=== PATIENT | female | born 1960 | race Caucasian/White ===

== ENCOUNTER → 2018-03-17 21:43 | Outpatient (CLI) | payer BC, SELFPAY ==
[2018-03-21 10:30] LABS: HPV Reflexed? NOT INDICATED
== END ==
PROVIDERS: Visit Provider Nurse Practitioner Adult Health
DX: Z01.419 Encounter for gynecological examination (general) (routine) without abnormal findings (principal)
CPT/HCPCS: 88175; G0145

== ENCOUNTER → 2018-04-29 08:05 | Outpatient (CLI) | payer BC, SELFPAY | PROVIDERS: Family Provider Family Medicine; PCP Family Medicine; Visit Provider Family Medicine | DX: Z12.31 Encounter for screening mammogram for malignant neoplasm of breast (principal) | CPT/HCPCS: 77063; 77067 ==

== ENCOUNTER → 2019-06-18 08:17 | Outpatient (CLI) | payer BC, SELFPAY ==
[2019-06-18 10:17] LABS: ALB/GLOB Ratio 1.1 RATIO (0.9-2.4); AST(SGOT) 90 U/L (15-37); Alanine Aminotransfer ALT/SGPT 36 U/L (13-56); Albumin, Serum 3.4 g/dL (3.2-5.0); Alkaline Phosphatase 75 U/L (45-117); Anion Gap 6 (5-15); BUN 15 mg/dL (7-18); BUN/Creat Ratio 19.3 RATIO (10-20); Chloride 107 mmol/L (98-107); Cholesterol 167 mg/dL (200); Creatinine, Serum 0.78 mg/dL (0.55-1.02); EST Glomerular Filtration Rate 81 mL/min (>60); Est Glom Filt Rate - Afr Amer 98 mL/min (>60); Globulin 3.1 g/dL (2.2-4.2); Glucose 101 mg/dL (74-106); High Density Lipoprotein 59 mg/dL; Magnesium 1.4 mg/dL (1.6-2.6); Potassium 4.6 mmol/L (3.5-5.1); Protein, Total 6.5 g/dL (6.4-8.2); Sodium Level 140 mmol/L (136-145); Triglycerides 86 mg/dL; Very Low Density Lipoprotein 17 mg/dL (5-40)
[2019-06-18 10:19] LABS: Vitamin B12 239 pg/mL (211-911); Vitamin D,25 Hydroxy 28.9 ng/mL (29.95-100.01)
[2019-06-18 10:20] LABS: Hemoglobin A1c 6.4 % (4.2-6.3)
== END ==
PROVIDERS: Family Provider Family Medicine; PCP Family Medicine; Referring Provider Family Medicine; Visit Provider Family Medicine
DX: E83.42 Hypomagnesemia (principal); Z98.84 Bariatric surgery status; E11.9 Type 2 diabetes mellitus without complications
CPT/HCPCS: 36415; 80053; 80061; 82306; 82607; 83036; 83735

== ENCOUNTER → 2019-11-23 14:12 | Outpatient (CLI) | payer BC, SELFPAY ==
--- NOTE | 2019-11-23 14:16 | BI_ITS ---
MAMMOGRAPHY - BILATERAL SCREENING REASON FOR EXAM: Female, 59 years old. Routine annual screening examination. PERTINENT HISTORY: Non-contributory. TECHNIQUE: Digital bilateral breast marie (3D mammographic acquisition) in the CC and MLO projections. 2-D mediolateral oblique (MLO) and craniocaudad (CC) views of both breasts were obtained. CAD: Full Field Digital Mammography with Computer Added Detection was performed. COMPARISON: Comparison is made with prior study dated April 29, 2018. FINDINGS: Breast Composition: There are scattered areas of fibroglandular density. There are no dominant masses or suspicious calcifications. No other significant abnormalities are identified. There has been no significant change since the prior study. BI/SCREEN MAMM (CAD) W/MARIE BILAT IMPRESSION: Stable bilateral screening mammogram. Yearly follow-up mammogram recommended. (A) ASSESSMENT CATEGORY: BIRADS Category 1: Negative. A letter regarding these results will be sent to the patient by the facility within 30 days. Approximately 10% of breast cancers are not detected by mammography. A normal mammogram should not delay biopsy of a clinically suspicious abnormality. [id number] Electronically Signed: Aldo Chacon, at 15:08 EDT , Service support ,
== END ==
PROVIDERS: PCP Family Medicine; Referring Provider Family Medicine; Visit Provider Family Medicine
DX: Z12.31 Encounter for screening mammogram for malignant neoplasm of breast (principal)
CPT/HCPCS: 77063; 77067

== ENCOUNTER → 2020-04-28 08:21 | Outpatient (CLI) | payer BC, SELFPAY ==
[2020-04-28 10:45] LABS: ALB/GLOB Ratio 1.1 RATIO (0.9-2.4); AST(SGOT) 20 U/L (15-37); Alanine Aminotransfer ALT/SGPT 18 U/L (13-56); Albumin, Serum 3.6 g/dL (3.2-5.0); Alkaline Phosphatase 97 U/L (45-117); Anion Gap 6 (5-15); BUN 14 mg/dL (7-18); BUN/Creat Ratio 16.7 RATIO (10-20); Calcium,Total 8.7 mg/dL (8.5-10.1); Chloride 106 mmol/L (98-107); Cholesterol 154 mg/dL (200); Creatinine, Serum 0.84 mg/dL (0.55-1.02); EST Glomerular Filtration Rate 74 mL/min (>60); Est Glom Filt Rate - Afr Amer 89 mL/min (>60); Globulin 3.3 g/dL (2.2-4.2); Glucose 106 mg/dL (74-106); High Density Lipoprotein 59 mg/dL; Potassium 4.2 mmol/L (3.5-5.1); Protein, Total 6.9 g/dL (6.4-8.2); Sodium Level 141 mmol/L (136-145); Triglycerides 58 mg/dL; Very Low Density Lipoprotein 12 mg/dL (5-40)
[2020-04-28 11:08] LABS: Microalbumin:Creatinine Ratio 18.8 mg/g CRE (<30 mg/g CRE)
== END ==
PROVIDERS: PCP Family Medicine; Referring Provider Family Medicine; Visit Provider Family Medicine
DX: E11.9 Type 2 diabetes mellitus without complications (principal)
CPT/HCPCS: 36415; 80053; 80061; 82043; 82570

== ENCOUNTER → 2020-05-05 08:30 | Outpatient (CLI) | payer BC, SELFPAY ==
[2020-05-05 10:40] LABS: Vitamin B12 > 2000 pg/mL (211-911)
[2020-05-11 08:20] LABS: Vitamin B1, Thiamine 161.5 nmol/L (66.5-200.0)
== END ==
PROVIDERS: PCP Family Medicine; Referring Provider Family Medicine; Visit Provider Family Medicine
DX: E55.9 Vitamin D deficiency, unspecified (principal); G62.9 Polyneuropathy, unspecified
CPT/HCPCS: 36415; 82306; 82607; 84425

== ENCOUNTER → 2020-07-12 12:40 | Outpatient (REF) | payer BC, SELFPAY | LOC: LABSPEC 12:40 | PROVIDERS: PCP Family Medicine; Visit Provider Family Medicine | DX: Z03.818 Encounter for observation for suspected exposure to other biological agents ruled out (principal) | CPT/HCPCS: 87635; U0003 ==

== ENCOUNTER → 2020-12-11 14:52 | Outpatient (CLI) | payer BC, SELFPAY ==
[2020-12-11 17:59] LABS: ALB/GLOB Ratio 1.1 RATIO (0.9-2.4); AST(SGOT) 19 U/L (15-37); Alanine Aminotransfer ALT/SGPT 24 U/L (13-56); Albumin, Serum 3.4 g/dL (3.2-5.0); Alkaline Phosphatase 82 U/L (45-117); Anion Gap 10 (5-15); BUN 15 mg/dL (7-18); BUN/Creat Ratio 19.6 RATIO (10-20); Calcium,Total 9.1 mg/dL (8.5-10.1); Chloride 109 mmol/L (98-107); Creatinine, Serum 0.77 mg/dL (0.55-1.02); EST Glomerular Filtration Rate 81 mL/min (>60); Est Glom Filt Rate - Afr Amer 98 mL/min (>60); Globulin 3.1 g/dL (2.2-4.2); Glucose 142 mg/dL (74-106); Potassium 3.4 mmol/L (3.5-5.1); Protein, Total 6.5 g/dL (6.4-8.2); Sodium Level 143 mmol/L (136-145)
[2020-12-11 18:09] LABS: Hemoglobin A1c 6.4 % (3.8-5.6)
[2020-12-11 18:13] LABS: Microalbumin:Creatinine Ratio 79.3 mg/g CRE (<30 mg/g CRE)
== END ==
PROVIDERS: PCP Family Medicine; Referring Provider Family Medicine; Visit Provider Family Medicine
DX: E11.9 Type 2 diabetes mellitus without complications (principal); I10 Essential (primary) hypertension
CPT/HCPCS: 36415; 80053; 82043; 82570; 83036

== ENCOUNTER → 2020-12-28 07:32 | Outpatient (CLI) | payer BC, SELFPAY ==
--- NOTE | 2020-12-28 07:34 | BI_ITS ---
MAMMOGRAPHY - BILATERAL SCREENING REASON FOR EXAM: Female, 60 years old. Routine annual screening examination. PERTINENT HISTORY: Non-contributory. TECHNIQUE: Digital bilateral breast marie (3D mammographic acquisition) in the CC and MLO projections. 2-D mediolateral oblique (MLO) and craniocaudad (CC) views of both breasts were obtained. CAD: Full Field Digital Mammography with Computer Added Detection was performed. COMPARISON: Comparison is made with prior study dated 11/23/2019 and 04/29/2018. FINDINGS: Breast Composition: There are scattered areas of fibroglandular density. There are no dominant masses or suspicious calcifications. No other significant abnormalities are identified. There has been no significant change since the prior study. BI/SCRN MAMM (CAD)W/MARIE BILAT IMPRESSION: Stable bilateral screening mammogram. Yearly follow-up mammogram recommended. (A) ASSESSMENT CATEGORY: BIRADS Category 1: Negative. A letter regarding these results will be sent to the patient by the facility within 30 days. Approximately 10% of breast cancers are not detected by mammography. A normal mammogram should not delay biopsy of a clinically suspicious abnormality. [id number] Electronically Signed: Aldo Chacon MD at 9:15 EDT , Service support ,
== END ==
PROVIDERS: PCP Family Medicine; Referring Provider Family Medicine; Visit Provider Family Medicine
DX: Z12.31 Encounter for screening mammogram for malignant neoplasm of breast (principal)
CPT/HCPCS: 77063; 77067

== ENCOUNTER 2021-05-14 11:13 | Emergency (ER) | payer BC, SELFPAY ==
[2021-05-14 11:15] VITALS: BP 97/74; PULSE 90; RESP 20; TEMP 36.7; O2SAT 95; BMI 31.0
--- NOTE | 2021-05-14 12:27 | RAD_ITS ---
STUDY: X-RAY CHEST REASON FOR EXAM: Female, 60 years old. Cough TECHNIQUE: Single AP portable view of the chest. COMPARISON: None. FINDINGS: EKG electrodes are seen. The lungs are clear and expanded. There is no demonstrated pleural abnormality. Normal size heart. Normal mediastinum and delicia. Normal visualized pulmonary arteries. Normal visualized aortic arch and descending thoracic aorta. There are diffuse degenerative changes of the visualized thoracic spine. There is degenerative osteoarthritis of the bilateral shoulders. There is no demonstrated abnormality of the visualized soft tissue structures of the upper abdomen. RAD/Chest 1 View (Portable) IMPRESSION: No acute abnormality is seen. Electronically Signed: Aldo Chacon MD at 13:33 EDT , Service support ,
--- NOTE | 2021-05-14 12:27 | EKG12_ITS ---
Test Reason : GENERAL ILLNESS Blood Pressure : / mmHG Vent. Rate : 070 BPM Atrial Rate : 070 BPM P-R Int : 166 ms QRS Dur : 080 ms QT Int : 398 ms P-R-T Axes : 066 012 069 degrees QTc Int : 429 ms Normal sinus rhythm Normal ECG Confirmed by CARMELLA BENNETT, DAFNE ([id number]), manager editorial DERICK GREEN ([id number]) on 05/15/2021 2:07:38 PM Referred By: Confirmed By:DAFNE WEIR MD
[2021-05-14] MEDS: 0.9% Normal Saline 1,000 ML 999 ML IV (13:32)
[2021-05-14] MEDS: dexAMETHasone 10 MG/ML Vial IV (13:33)
[2021-05-14 13:44] LABS: Absolute Lymphocyte Count 0.67 X10^3/uL (0.83-4.51); Absolute Neutrophil Count 6.4 X10^3/uL (2.0-7.7); Basophil# 0.02 X10^3/uL; Basophil% 0.3 % (0-1); Eosinophil# 0.03 X10^3/uL; Eosinophils% 0.4 % (0-5); Hematocrit 41.4 % (37-47); Hemoglobin 13.4 g/dL (12.0-15.0); Lymphocyte # 0.67 X10^3/ul (0.83-4.51); Lymphocyte % 8.8 % (19-41); Mean Corp Hgb Conc 32.4 g/dL (32-36); Mean Corpuscular Hgb 28.8 pg (27.0-32.0); Mean Corpuscular Volume 88.8 fL (81-99); Mean Platelet Vol. 9.5 fl (6.2-12.0); Monocyte# 0.39 X10^3/uL; Monocyte% 5.1 % (0-10); NRBC Flagged by Analyzer 0 % (0-5); Neutrophil # 6.44 X10^3/uL (2.7-7.7); Neutrophil % 84.7 % (47-70); Platelet Count 353 K/mm3 (150-450); RBC Distribution Width CV 11.9 % (11.6-14.6); RBC Distribution Width SD 38.5 fl (35.1-43.9); Red Blood Count 4.66 M/mm3 (4.2-5.4); White Blood Count 7.6 K/mm3 (4.4-11.0)
[2021-05-14 14:11] LABS: Anion Gap 7 (5-15); BUN 27 mg/dL (7-18); BUN/Creat Ratio 30.5 RATIO (10-20); Calcium,Total 9.2 mg/dL (8.5-10.1); Chloride 105 mmol/L (98-107); Creatinine, Serum 0.88 mg/dL (0.55-1.02); EST Glomerular Filtration Rate 69 mL/min (>60); Est Glom Filt Rate - Afr Amer 83 mL/min (>60); Estimated Creatinine Clearance 65.28 ml/min; Glucose 234 mg/dL (74-106); Magnesium 1.8 mg/dL (1.6-2.6); Potassium 3.7 mmol/L (3.5-5.1); Sodium Level 137 mmol/L (136-145); Troponin-I HS 7 pg/mL (3.0-54.0)
--- NOTE | 2021-05-14 14:57 | EX.ED.DYSGE1 ---
HPI History of Present Illness Chief Complaint: General Illness Narrative Narrative: Patient is a 60-year-old female who contracted Covid at work approximately 10 to 14 days ago. Family states they felt she was slightly confused yesterday. They also state that the patient's also has Covid but had to be admitted to the hospital secondary to Covid pneumonia. With the patient's symptoms and known Covid diagnosis I did have concern for being admission and therefore brought her in for evaluation PFSH PFS Home Medications dexamethasone [Decadron] 6 mg PO DAILY #10 tab 05/14/21 [Rx Last Taken Unknown] Allergy/AdvReac Type Severity Reaction Status Date / Time ramipril [From Altace] Allergy Other Verified 05/14/21 11:25 Social History Smoking Status: Former smoker ROS ROS ED Constitutional Constitutional ED: Denies chills or fever(s) ENT ENT ED: Reports rhinorrhea; Denies sore throat Cardiovascular Cardiovascular: Denies chest pain Respiratory/Chest Respiratory/Chest: Reports cough; Denies dyspnea Gastrointestinal Gastrointestinal: Denies abdominal pain, diarrhea, nausea or vomiting Genitourinary Genitourinary ED: Denies dysuria Musculoskeletal Musculoskeletal: Denies myalgias Integumentary Denies rash Neurologic Neurologic: Denies headache(s) Hematologic/Lymphatic Hematologic/Lymphatic: Denies easy bleeding or easy bruising EXAM Physical Exam Const Vital Signs: 05/14/21 11:15 05/14/21 11:26 Temperature 98.1 F Temperature Source Temporal Pulse Rate 90 Respiratory Rate 20 H Respiratory Pattern Normal Blood Pressure 97/74 Blood Pressure Mean 81 Pulse Ox 95 Oxygen Delivery Method Room Air Positive well nourished and well developed General Appearance ED: well developed HEENT Reports moist mucous membranes HEENT Narrative: Cobblestoning noted in the posterior pharynx without airway edema or compromise Eyes PERRL and EOMs intact bilaterally Neck supple Chest Wall inspection of chest normal Resp Resp Narrative: Breath sounds are slight diminished throughout with faint expiratory wheeze but no nasal flaring retractions tachypnea or accessory muscle use Cardio regular rate and regular rhythm Rate: other Other Details: Radial pulses are plus 2 out of 4 bilaterally are equal and symmetric GI normal to inspection, nondistended, normoactive bowel sounds, non-tender and non-distended GI Narrative: No voluntary guarding or rigidity no pulsatile mass Auscultation: normoactive bowel sounds Palpation: soft Extremity normal to inspection Extremity Narrative: No asymmetric edema no pitting edema negative Homans' sign bilaterally Neuro oriented x3 and CN's II-XII intact bilaterally Sensorium / Orientation: alert Motor Exam: strength 5/5 throughout Psych mental status grossly normal Skin no rashes or lesions noted MDM MDM MDM Narrative Medical decision making narrative: Patient presented to the ER in no acute distress. Family reported mild confusion but she is awake alert and oriented person place and time with a nonfocal neurologic exam. With her known Covid diagnosis I do feel that she has mild delirium secondary to this. As her has Covid pneumonia did elect to perform a basic work-up. Chest x-ray revealed no obvious infiltrate and lab work revealed no clinically significant finding. On reevaluation she is resting comfortably and remains awake alert and oriented with a normal neurologic exam and therefore I feel safe for discharge Lab Data Labs: Laboratory Results - last 24 hr 05/14/21 05/14/21 13:30 13:30 WBC 7.6 RBC 4.66 Hgb 13.4 Hct 41.4 MCV 88.8 MCH 28.8 MCHC 32.4 RDW Std Deviation 38.5 RDW Coeff of Cristina 11.9 Plt Count 353 MPV 9.5 Immature Gran % (Auto) 0.700 Neut % (Auto) 84.7 H Lymph % (Auto) 8.[address] [place] % (Auto) 5.1 Eos % (Auto) 0.4 Baso % (Auto) 0.3 Absolute Neuts (auto) 6.4 Absolute Lymphs (auto) 0.67 L Nucleated RBC % 0 Sodium 137 Potassium 3.7 Chloride 105 Carbon Dioxide 25.0 Anion Gap 7 BUN 27 H Creatinine 0.88 Estim Creat Clear Calc 65.28 Est GFR (MDRD) Af Amer 83 Est GFR (MDRD) Non-Af 69 BUN/Creatinine Ratio 30.5 H Glucose 234 H Calcium 9.2 Magnesium 1.8 Troponin I High Sens 7 Radiography Chest X-Ray - ED: 1 View, Read by Radiologist and Normal Diagnostic Testing: Radiology Impression Chest X-Ray 05/14/21 12:27 IMPRESSION: No acute abnormality is seen. Electronically Signed: Aldo Chacon MD at 13:33 EDT , Service support , Discharge Plan Triage Chief Complaint: General Illness ED Provider: Malachi Dozier Dx/Rx/DC Orders Clinical Impression: COVID-19 Instructions: Coronavirus Disease 2019 (COVID-19): Caring for Yourself or Others Prescriptions: New dexamethasone [Decadron] 6 mg tablet 6 mg PO DAILY Qty: 10 RF: 0 Primary Care Provider: Tunde Servin Referrals: Tunde Servin MD [Primary Care Provider] - Disposition Disposition: Home, Self Care
[2021-05-14 15:09] VITALS: BP 105/57; PULSE 76; RESP 23; O2SAT 96
== END 2021-05-14 15:12 | disposition home or self-care (01) ==
PROVIDERS: Emergency Provider Emergency Medicine; PCP Family Medicine
DX: U07.1 COVID-19 (principal); Z87.891 Personal history of nicotine dependence
CPT/HCPCS: 71045; 80048; 83735; 84484; 85025; 93005; 96361; 96374; 99282; J7030; A4216

== ENCOUNTER → 2021-05-15 16:19 | Outpatient (CLI) | payer BC, SELFPAY ==
[2021-05-15 18:05] LABS: Absolute Lymphocyte Count 0.54 X10^3/uL (0.83-4.51); Absolute Neutrophil Count 8.8 X10^3/uL (2.0-7.7); Basophil# 0.02 X10^3/uL; Basophil% 0.2 % (0-1); Hematocrit 38.9 % (37-47); Hemoglobin 12.6 g/dL (12.0-15.0); Lymphocyte # 0.54 X10^3/ul (0.83-4.51); Lymphocyte % 5.4 % (19-41); Mean Corp Hgb Conc 32.4 g/dL (32-36); Mean Corpuscular Hgb 28.6 pg (27.0-32.0); Mean Corpuscular Volume 88.4 fL (81-99); Mean Platelet Vol. 9.7 fl (6.2-12.0); Monocyte# 0.53 X10^3/uL; Monocyte% 5.3 % (0-10); NRBC Flagged by Analyzer 0 % (0-5); Neutrophil # 8.76 X10^3/uL (2.7-7.7); Neutrophil % 87.9 % (47-70); POSITIVE DIFFERENTIAL YES; Platelet Count 351 K/mm3 (150-450); RBC Distribution Width CV 11.6 % (11.6-14.6); RBC Distribution Width SD 37.2 fl (35.1-43.9)
[2021-05-15 18:13] LABS: Differential Indicated SCAN CRITERIA MET
[2021-05-15 18:42] LABS: Differential Comment SCANNED
[2021-05-15 18:50] LABS: Anion Gap 10 (5-15); BUN 21 mg/dL (7-18); BUN/Creat Ratio 22.8 RATIO (10-20); Calcium,Total 9.6 mg/dL (8.5-10.1); Chloride 105 mmol/L (98-107); Creatinine, Serum 0.92 mg/dL (0.55-1.02); EST Glomerular Filtration Rate 66 mL/min (>60); Est Glom Filt Rate - Afr Amer 80 mL/min (>60); Glucose 246 mg/dL (74-106); Potassium 4.2 mmol/L (3.5-5.1); Sodium Level 138 mmol/L (136-145)
== END ==
PROVIDERS: PCP Family Medicine; Referring Provider Family Medicine; Visit Provider Registered Nurse
DX: U07.1 COVID-19 (principal)
CPT/HCPCS: 36415; 80048; 85025

== ENCOUNTER 2021-11-16 08:13 | Outpatient (CLI) | payer BC, SELFPAY ==
[2021-11-16 09:25] LABS: Absolute Lymphocyte Count 0.86 X10^3/uL (0.83-4.51); Absolute Neutrophil Count 3.8 X10^3/uL (2.0-7.7); Basophil# 0.05 X10^3/uL; Basophil% 0.9 % (0-1); Eosinophil# 0.22 X10^3/uL; Eosinophils% 4.1 % (0-5); Hematocrit 38.9 % (37-47); Hemoglobin 12.5 g/dL (12.0-15.0); Lymphocyte # 0.86 X10^3/ul (0.83-4.51); Lymphocyte % 16.1 % (19-41); Mean Corp Hgb Conc 32.1 g/dL (32-36); Mean Corpuscular Hgb 29.3 pg (27.0-32.0); Mean Corpuscular Volume 91.3 fL (81-99); Mean Platelet Vol. 9.5 fl (6.2-12.0); Monocyte# 0.34 X10^3/uL; Monocyte% 6.4 % (0-10); NRBC Flagged by Analyzer 0 % (0-5); Neutrophil # 3.84 X10^3/uL (2.7-7.7); Neutrophil % 72.1 % (47-70); Platelet Count 207 K/mm3 (150-450); RBC Distribution Width CV 12.5 % (11.6-14.6); RBC Distribution Width SD 41.8 fl (35.1-43.9); Red Blood Count 4.26 M/mm3 (4.2-5.4); White Blood Count 5.3 K/mm3 (4.4-11.0)
[2021-11-16 09:44] LABS: Microalbumin,Random Urine 34.2 mg/L (NO RANGE EST.)
[2021-11-16 10:01] LABS: Hemoglobin A1c 6.6 % (3.8-5.6)
[2021-11-16 10:13] LABS: ALB/GLOB Ratio 1.2 RATIO (0.9-2.4); AST(SGOT) 15 U/L (15-37); Alanine Aminotransfer ALT/SGPT 23 U/L (13-56); Albumin, Serum 3.5 g/dL (3.2-5.0); Alkaline Phosphatase 60 U/L (45-117); Anion Gap 5 (5-15); BUN 10 mg/dL (7-18); BUN/Creat Ratio 15.4 RATIO (10-20); Calcium,Total 8.6 mg/dL (8.5-10.1); Chloride 106 mmol/L (98-107); Cholesterol 156 mg/dL (200); Creatinine, Serum 0.65 mg/dL (0.55-1.02); EST Glomerular Filtration Rate 98 mL/min (>60); Est Glom Filt Rate - Afr Amer 119 mL/min (>60); Globulin 2.9 g/dL (2.2-4.2); Glucose 130 mg/dL (74-106); High Density Lipoprotein 62 mg/dL; Potassium 4.2 mmol/L (3.5-5.1); Protein, Total 6.4 g/dL (6.4-8.2); Sodium Level 138 mmol/L (136-145); Triglycerides 133 mg/dL; Very Low Density Lipoprotein 27 mg/dL (5-40)
== END 2021-11-16 23:59 | disposition home or self-care (01) ==
LOC: LAB 08:14
PROVIDERS: Family Medicine; Visit Provider Nurse Practitioner Family
DX: E11.9 Type 2 diabetes mellitus without complications (principal); I10 Essential (primary) hypertension
CPT/HCPCS: 36415; 80053; 80061; 82043; 83036; 85025

== ENCOUNTER 2021-11-26 15:00 | Outpatient (RCR) | payer BC, SELFPAY ==
--- NOTE | 2021-10-08 09:47 | HP.PTEVAL ---
Patient's Visit Information JONO BELLO is a 61 year old F referred to Physical Therapy by ROGE Varela with a diagnosis of Neck Strain. Date of Evaluation: 10/08/21 Physical Therapist: JUANITA Laguerre - Visit Plan Frequency: 2x /Week Duration: 6 Weeks Plan: 2X/ week for 6 weeks for Postural and scapular exercises, RC strengthening, Stretching of the R hip flexors, Piriformis and IT Band, strengthening of the R hip, gait training, core stability with HEP and man therapy as needed. HEP: sitting with upright posture and R chair seated piriformis stretching. - Subjective Pt reports that she started to have some R arm achy over the lateral side of her R shoulder and it is hot and not feeling right. The more she used it the worst she became. She has no strength or ROM to move her arm or even wipe her bottom. She went to a chiropractor and he was releasing tension in her shoulder blades. Every time she went to him he wanted to crack her. Through her Chiro treatment she started to have pain in the Left side of her arms. She also has a pinched something in her R hip and it is very painful at times. She was given muscle relaxors and those have helped a lot. The last time she went to see the chiropractor she will hear bones popping on the R side side. She put her R arm up in the air and he jerked up on her. She was in such pain from the manipulation on both sides that she was crying. She is on Advil and muscle relaxors. She did sleep a lot this weekend. Current symptoms: difficulty moving her arms in certain directions and feels in muscles. 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 She has no N&T in the last couple of days but last week there was in upper and lower arms. She reports that she has neck pain and carries a lot of tension in her shoulders. She sees a massage therapist (seen this past Friday)...She does not feel too bad. Doucette some relief from massage therapy but it was temporary. It did not go away and had pain in her hip so bad she could not walk. She has no ANN. She reports weakness when she looses her strength when she does something. Pt reports that she was moving her dad a lot in bed and thinks that is when her shoulder pain started. R hip pain has been going on for quite some time. She thinks that she has had a limp in her hip for some time but since her R shoulder has flared up she feels that her hip is so painful that she can not move. Years since an x-ray. She has no N&T down the leg. Sitting to stand is bad. Walking is bad at times. She can walk somedays but other days not so much. Her R leg does not give out on her. It just stops her in her tracks. - Pain C-spine pain Pain Intensity (Out of 10): 3 Pain Intensity Range: 10 R shoulder pain Pain Intensity (Out of 10): 3 Pain Intensity Range: 10 Comment: with IBProf L shoulder pain Pain Intensity (Out of 10): 3 Pain Intensity Range: 10 Comment: with IBProf R hip argueta Pain Intensity (Out of 10): 3 Pain Intensity Range: 10 - Objective R hand cyber crime investigator strength 18# and L hand cyber crime investigator strength 20#. C-spine AROM: flexion 100%, Ext 75%, SB B 100%, Rot B 100%. Shoulder AROM: L shoulder flexion 150 degrees, R shoulder flexion 116 degrees, L shoulder ABD 130 degrees and R shoulder ABD 91 degrees, L IR to L1 and R IR to not even to PSIS, L ER 35 degrees, and R ER 30 degrees. Shoulder MMT: 3-/5 B shld flexion (painful), 3-/5 IR and ER B, Shld abd 3+/5. Posture: sits with rounded shoulders. palpation: tender under the acromin on the R. Gait: walks with decrease stance time on the R LE. Increase veering at times. Short strides. TIGHT B hip flexors/Quads. Good HS length. Pt is able to walk on heels and toes. LE MMT: B hip flex 4-/5, R hip abd 3+/5 and L 4-/5, Prone hip ext B 3-/5. Tight R pififormis compared to the L and increase pain with stretching it. Tight IT band on the R compared to the L and pain with stretching it in supine. Bridge: able to do 1/2 normal ROM bridge - Balance/Special Test Scores Quick DASH Score: 68.1800 - Goals Goal 1:: I HEP Goal Time Frame: 4-6 Weeks Goal 2:: Decrease shoulder pain to less that 2/10 with movement and even doing bathroom personal hygeine Goal Time Frame: 4-6 Weeks Goal 3:: Decrease L hip pain to 2/10 with sit to stand transfers and sitting for longer than 30 min without having to shift off the R hip Goal Time Frame: 4-6 Weeks Goal 4:: Increase L hip strength by 1/2 muscle grade (at time of the eval: LE MMT: B hip flex 4-/5, R hip abd 3+/5 and L 4-/5, Prone hip ext B 3-/5) Goal Time Frame: 4-6 Weeks Goal 5:: Increase R piriformis and R IT band flexibility to be able to complete those stretches without pain Goal Time Frame: 4-6 Weeks - Rehabilitation Potential Rehabilitation Potential: Good - Anticipated Interventions Patient/Client Instruction: Educate patient on: Condition, Plan of Care For the Purpose of:: To decrease pain, To increase ROM, To improve nutrient delivery to tissue, To improve muscle performance and motor function, To improve ability to perform ADL's, To increase tolerance to activity/condition/position, To improve performance and independence with ADL's, To decrease level of supervision to perform tasks, To improve ability of physical actions for home/community/work/leisure, To improve gait and locomotor functions, To improve health of tissue, To decrease soft tissue restriction, To increase flexibility/ROM Therapeutic Exercise to Include: Strength training, Balance training, Postural training, Flexibilty training, Gait and locomotor training, Neuromotor development, Passive ROM, Active ROM, Dynamic Lumbar Stabilization, Scapular Strength/Stabilization For the Purpose of:: To decrease pain, To increase ROM, To improve nutrient delivery to tissue, To improve muscle performance and motor function, To improve ability to perform ADL's, To increase tolerance to activity/condition/position, To improve performance and independence with ADL's, To decrease level of supervision to perform tasks, To improve ability of physical actions for home/community/work/leisure, To improve gait and locomotor functions, To improve health of tissue, To decrease soft tissue restriction, To increase flexibility/ROM, To improve balance Manual Therapy Techniques to Include: Mobilization, Passive ROM, Soft tissue mobilization For the Purpose of:: To decrease pain, To increase ROM, To improve nutrient delivery to tissue, To improve muscle performance and motor function, To improve ability to perform ADL's, To increase tolerance to activity/condition/position, To improve performance and independence with ADL's, To decrease level of supervision to perform tasks, To improve gait and locomotor functions, To improve health of tissue, To decrease soft tissue restriction, To increase flexibility/ROM Thank you for the opportunity to evaluate your patient. For Medicare and Medicare HMO plans, please review the plan of care and approve it. It will need to be FAXED BACK to us at [phone] for Medicare purposes. For Medicare only, by signing this I certify the plan of care. Please let me know if there are questions or concerns regarding this plan of care. Physician Signature: Date:
--- NOTE | 2021-11-26 15:53 | HP.PTDCSUM_ITS ---
It has been my pleasure to treat JONO BELLO referred by WALDEMAR Varela, with the diagnosis of Neck Strain for a total of 10 visit(s). Discharge Date: 11/26/21 Please see the following information for a summary of their discharge status. Subjective: Pt reports that she has been feeling relief with the manual therapy and then stretching. She is going to go to [facility] during her lunch break to resume PT. Able to do hip exercises at home without any pain. The muscles in her neck, shoulders, and shoulder blades and she just holds her tension there and everywhere is so tense. Pt has the oppurtunity to do a $15 membership at the [facility]. SHe also has some AT sessions lined up also. The popping in the shoulder is better. she feels that she needs more MT before strengthening. C-spine pain Pain Intensity (Out of 10): 2 R shoulder pain Pain Intensity (Out of 10): 4 L shoulder pain Pain Intensity (Out of 10): 4 R hip argueta Pain Intensity (Out of 10): 0 % Improvement: 50 Objective/Function: LE MMT: B hip flex 4/5, R hip abd 4-/5 and L 4-/5, Prone hip ext B 3-/5) Goal 1:: I HEP Goal Progress: Goal Met Goal 2:: Decrease shoulder pain to less that 2/10 with movement and even doing bathroom personal hygeine Goal Progress: Progressing Goal 3:: Decrease L hip pain to 2/10 with sit to stand transfers and sitting for longer than 30 min without having to shift off the R hip Goal Progress: Goal Met Goal 4:: Increase L hip strength by 1/2 muscle grade (at time of the eval: LE MMT: B hip flex 4-/5, R hip abd 3+/5 and L 4-/5, Prone hip ext B 3-/5) Goal Progress: Goal Met Goal 5:: Increase R piriformis and R IT band flexibility to be able to complete those stretches without pain Goal Progress: Goal Met Plan: DC PT to HEP Discharge Comments: dc pt If there are questions or concerns regarding this patient's physical therapy, please feel free to call me at [phone]. Thank you for the referral of this patient. Sincerely, Mei Stoner, MPT Balance/Gait/Functional tests - Balance/Special Test Scores Quick DASH Score: [phone]
== END 2021-11-26 19:00 | disposition home or self-care (01) ==
LOC: PT 15:00
PROVIDERS: PCP Family Medicine; Referring Provider Nurse Practitioner Family; Visit Provider Nurse Practitioner Family
DX: M25.559 Pain in unspecified hip (principal); S16.1XXD Strain of muscle, fascia and tendon at neck level, subsequent encounter
CPT/HCPCS: 97110; 97140; 97162; 97530

== ENCOUNTER → 2022-04-23 | Outpatient (CLI) | payer BC, SELFPAY | END | disposition home or self-care (01) | LOC: LABSPEC 08:54 | PROVIDERS: Visit Provider Family Medicine | DX: R21 Rash and other nonspecific skin eruption (principal) | CPT/HCPCS: 87070; 87077; 87186; 87205 ==

== ENCOUNTER → 2022-06-20 | Outpatient (CLI) | payer BC, SELFPAY ==
--- NOTE | 2022-06-20 13:55 | ECHOD_ITS ---
Reason For Study: Murmur Procedure This was a 2D Doppler, Color Flow transthoracic echocardiogram. Exam performed in department. Left Ventricle Normal LV size. The estimated ejection fraction is 60 %. No evidence for diastolic dysfunction. No regional wall motion abnormalities noted. Right Ventricle Normal RV size. Normal systolic function. Atria Normal left atrium. Normal right atrium. Bubble study appears to be positive for R to L shunt. Mitral Valve There is no mitral valve stenosis. No mitral valve insufficiency. Tricuspid Valve There is no tricuspid stenosis. Mild tricuspid valve insufficiency. Pulmonary artery systolic pressure is 25 mmHg. Aortic Valve Trisinus/trileaflet aortic valve. Mild diffuse aortic valve thickening. Mild aortic stenosis. No aortic valve insufficiency. Pulmonic Valve There is no pulmonic valvular stenosis. No pulmonic valve insufficiency. Great Vessels Normal aortic root. Pericardium/Pleural No pericardial effusion. Medication 20 gauge I.V. with prn adaptor inserted into right arm. Performed a rapid injection of agitated mix of 9 cc saline and 1cc air to assess for atrial septal defect. MMode/2D Measurements & Calculations LVIDd: 4.4 cm IVSd: 1.2 cm LVOT diam: 2.2 cm LVIDs: 3.4 cm LVPWd: 1.0 cm RVDd: 3.4 cm FS: 23.9 % LVOT area: 3.8 cm2 LA dimension: 3.8 cm LAV(MOD-bp): 54.1 ml LA A4 area: 17.8 cm2 LAV(MOD-bp) Indexed: 26.1 ml/m2 LAV(MOD-sp2): 53.5 ml LAV(MOD-sp4): 51.9 ml RA A4 area: 12.7 cm2 Time Measurements MV dec time: 0.18 sec Doppler Measurements & Calculations MV E max leander: 66.8 cm/sec Lat Peak E' Leander: 9.0 cm/sec Med Peak E' Leander: 7.6 cm/sec MV A max leander: 113.1 cm/sec E/E' lat: 7.5 E/E' med: 8.8 MV E/A: 0.59 MV V2 max: 119.4 cm/sec MV P1/2t max leander: 75.0 cm/sec Ao V2 max: 234.4 cm/sec MV max P.7 mmHg MV P1/2t: 70.3 msec Ao max P.0 mmHg MV V2 mean: 62.2 cm/sec MV dec slope: 312.5 cm/sec2 Ao V2 mean: 158.7 cm/sec MV mean P.8 mmHg Ao mean P.6 mmHg MV V2 VTI: 21.8 cm MVA(P1/2t): 3.1 cm2 Ao V2 VTI: 43.2 cm MVA(VTI): 2.9 cm2 ELANA(I,D): 1.5 cm2 ELANA(V,D): 1.3 cm2 LV V1 max: 81.8 cm/sec SV(LVOT): 63.8 ml PA V2 max: 83.3 cm/sec LV V1 max P.7 mmHg LV V1 mean P.2 mmHg LV V1 mean: 48.8 cm/sec LV V1 VTI: 16.8 cm TR max leander: 244.6 cm/sec TR max P.9 mmHg ECHO/Echo Complete Interpretation Summary The estimated ejection fraction is 60 %. No evidence for diastolic dysfunction. Mild aortic stenosis. Ordering Physician: Leyda Mukherjee Referring Physician: Leyda Mukherjee Performed By: Vikash Caldera RCS
== END | disposition home or self-care (01) ==
LOC: CVS 13:54
PROVIDERS: PCP Family Medicine; Referring Provider Family Medicine; Visit Provider Family Medicine
DX: R01.1 Cardiac murmur, unspecified (principal)
CPT/HCPCS: 93306; A4216

== ENCOUNTER → 2022-08-07 | Outpatient (CLI) | payer BC, SELFPAY ==
--- NOTE | 2022-08-07 16:24 | MRI_ITS ---
EXAM: MR LEFT UPPER EXTREMITY WITHOUT INTRAVENOUS CONTRAST, HUMERUS CLINICAL INDICATION: bicep tear TECHNIQUE: Multiplanar and multisequence MR images of the right humerus without intravenous contrast. This report was created using [employer] report [employer] technology. COMPARISON: None. FINDINGS: Motion artifact limits assessment. BONES/JOINTS: Large amount of glenohumeral joint fluid. This extends into the subacromial/subdeltoid bursa through a full-thickness tear of the supraspinatus and infraspinatus tendon. There is possible tearing involving some of the fibers of subscapularis tendon. No bone marrow signal alterations involving the humerus. No fracture. MUSCLES: There is evidence of a low to moderate grade strain injury involving the coracobrachialis muscle and the biceps brachii muscle anteriorly. OTHER SOFT TISSUES: Long head of the biceps tendon is not seen in the bicipital groove and may be torn/displaced. MRI/Upper Ext/No Jt/ wo IMPRESSION: 1. Full-thickness tear of the infraspinatus and supraspinatus tendons. Possible partial-thickness tearing of some of the fibers of the subscapularis tendon. Consider MRI dedicated to the right shoulder for further more accurate investigation. 2. Large amount of glenohumeral joint fluid extending into the subacromial/subdeltoid bursa. 3. Low to moderate grade strain injury involving the coracobrachialis muscle and the biceps brachii muscle anteriorly. Electronically Signed: Malachi Wild MD at 22:34 EST ,
== END | disposition home or self-care (01) ==
PROVIDERS: PCP Family Medicine; Referring Provider Nurse Practitioner Family; Visit Provider Nurse Practitioner Family
DX: M75.121 Complete rotator cuff tear or rupture of right shoulder, not specified as traumatic (principal); S46.211A Strain of muscle, fascia and tendon of other parts of biceps, right arm, initial encounter; M25.411 Effusion, right shoulder
CPT/HCPCS: 73218

== ENCOUNTER → 2022-12-31 | Outpatient (CLI) | payer BC, SELFPAY ==
--- NOTE | 2022-12-31 14:23 | BI_ITS ---
MAMMOGRAPHY - BILATERAL SCREENING REASON FOR EXAM: Female, 62 years old. Routine annual screening examination. PERTINENT HISTORY: Non-contributory. TECHNIQUE: Digital bilateral breast marie (3D mammographic acquisition) in the CC and MLO projections. 2-D mediolateral oblique (MLO) and craniocaudad (CC) views of both breasts were obtained. CAD: Full Field Digital Mammography with Computer Added Detection was performed. COMPARISON: Comparison is made with prior study of December 28, 2020 and November 23, 2019 FINDINGS: Breast Composition: There are scattered areas of fibroglandular density. There are no dominant masses or suspicious calcifications. No other significant abnormalities are identified. There has been no significant change since the prior study. BI/SCRN MAMM (CAD)W/MARIE BILAT IMPRESSION: Stable bilateral screening mammogram. Yearly follow-up mammogram recommended. (A) ASSESSMENT CATEGORY: BIRADS Category 1: Negative. A letter regarding these results will be sent to the patient by the facility within 30 days. Approximately 10% of breast cancers are not detected by mammography. A normal mammogram should not delay biopsy of a clinically suspicious abnormality. [id number] Electronically Signed: Aldo Chacon MD at 8:58 EDT ,
== END | disposition home or self-care (01) ==
PROVIDERS: PCP Family Medicine; Referring Provider Nurse Practitioner Family; Visit Provider Nurse Practitioner Family
DX: Z12.31 Encounter for screening mammogram for malignant neoplasm of breast (principal)
CPT/HCPCS: 77063; 77067

== ENCOUNTER → 2023-03-10 | Outpatient (CLI) | payer OTHER, SELFPAY ==
[2023-03-10 12:30] LABS: AST(SGOT) 19 U/L (15-37); Alanine Aminotransfer ALT/SGPT 27 U/L (13-56); Albumin, Serum 3.5 g/dL (3.2-5.0); Alkaline Phosphatase 71 U/L (45-117); Anion Gap 7 (5-15); BUN 11 mg/dL (7-18); BUN/Creat Ratio 13.6 RATIO (10-20); Calcium,Total 9.2 mg/dL (8.5-10.1); Chloride 106 mmol/L (98-107); Creatinine, Serum 0.81 mg/dL (0.55-1.02); EST Glomerular Filtration Rate 76 mL/min (>60); Est Glom Filt Rate - Afr Amer 92 mL/min (>60); Globulin 3.4 g/dL (2.2-4.2); Glucose 193 mg/dL (74-106); Protein, Total 6.9 g/dL (6.4-8.2); Sodium Level 140 mmol/L (136-145)
== END | disposition home or self-care (01) ==
PROVIDERS: PCP Family Medicine; Referring Provider Family Medicine; Visit Provider Family Medicine
DX: E11.9 Type 2 diabetes mellitus without complications (principal)
CPT/HCPCS: 36415; 80053; 82043

== ENCOUNTER → 2023-10-13 | Outpatient (CLI) | payer OTHER, SELFPAY ==
[2023-10-13 11:02] LABS: Microalbumin,Random Urine 25.6 mg/L (NO RANGE EST.); Microalbumin:Creatinine Ratio 36.3 mg/g CRE (<30 mg/g CRE)
[2023-10-13 11:06] LABS: ALB/GLOB Ratio 1.1 RATIO (0.9-2.4); AST(SGOT) 21 U/L (15-37); Alanine Aminotransfer ALT/SGPT 25 U/L (13-56); Albumin, Serum 3.5 g/dL (3.2-5.0); Alkaline Phosphatase 74 U/L (45-117); Anion Gap 6 (5-15); BUN 12 mg/dL (7-18); BUN/Creat Ratio 14.7 RATIO (10-20); Chloride 109 mmol/L (98-107); Cholesterol 166 mg/dL (200); Creatinine, Serum 0.82 mg/dL (0.55-1.02); EST Glomerular Filtration Rate 75 mL/min (>60); Est Glom Filt Rate - Afr Amer 91 mL/min (>60); Ferritin 12 ng/mL (8-252); Globulin 3.3 g/dL (2.2-4.2); Glucose 131 mg/dL (74-106); High Density Lipoprotein 62 mg/dL; Potassium 4.4 mmol/L (3.5-5.1); Protein, Total 6.8 g/dL (6.4-8.2); Sodium Level 141 mmol/L (136-145); Triglycerides 100 mg/dL; Very Low Density Lipoprotein 20 mg/dL (5-40)
[2023-10-13 13:01] LABS: Vitamin B12 159 pg/mL (211-911); Vitamin D,25 Hydroxy 30.8 ng/mL
== END | disposition home or self-care (01) ==
PROVIDERS: PCP Family Medicine; Referring Provider Family Medicine; Visit Provider Family Medicine
DX: E11.9 Type 2 diabetes mellitus without complications (principal); E53.8 Deficiency of other specified B group vitamins; E55.9 Vitamin D deficiency, unspecified; E78.5 Hyperlipidemia, unspecified; I10 Essential (primary) hypertension
CPT/HCPCS: 36415; 80053; 80061; 82043; 82306; 82570; 82607; 82728

== ENCOUNTER → 2024-06-10 | Outpatient (CLI) | payer BC, SELFPAY ==
[2024-06-10 18:11] LABS: Absolute Neutrophil Count 4.3 X10^3/uL (2.0-7.7); Basophil# 0.04 X10^3/uL; Basophil% 0.7 % (0-1); Eosinophil# 0.08 X10^3/uL; Eosinophils% 1.3 % (0-5); Hematocrit 36.3 % (37-47); Hemoglobin 12.1 g/dL (12.0-15.0); Lymphocyte % 22.8 % (19-41); Mean Corp Hgb Conc 33.3 g/dL (32-36); Mean Corpuscular Hgb 30.6 pg (27.0-32.0); Mean Corpuscular Volume 91.9 fL (81-99); Mean Platelet Vol. 10.5 fl (6.2-12.0); Monocyte# 0.31 X10^3/uL; Monocyte% 5.1 % (0-10); NRBC Flagged by Analyzer 0 % (0-5); Neutrophil # 4.28 X10^3/uL (2.7-7.7); Neutrophil % 69.8 % (47-70); Platelet Count 190 K/mm3 (150-450); RBC Distribution Width CV 11.7 % (11.6-14.6); RBC Distribution Width SD 39.6 fl (35.1-43.9); Red Blood Count 3.95 M/mm3 (4.2-5.4); White Blood Count 6.1 K/mm3 (4.4-11.0)
[2024-06-10 18:28] LABS: ALB/GLOB Ratio 1.2 RATIO (0.9-2.4); AST(SGOT) 14 U/L (15-37); Alanine Aminotransfer ALT/SGPT 23 U/L (13-56); Albumin, Serum 3.7 g/dL (3.2-5.0); Alkaline Phosphatase 61 U/L (45-117); Anion Gap 7 (5-15); BUN 15 mg/dL (7-18); BUN/Creat Ratio 14.7 RATIO (10-20); Calcium,Total 9.6 mg/dL (8.5-10.1); Chloride 107 mmol/L (98-107); Creatinine, Serum 1.02 mg/dL (0.55-1.02); EST Glomerular Filtration Rate 58 mL/min (>60); Est Glom Filt Rate - Afr Amer 70 mL/min (>60); Globulin 3.2 g/dL (2.2-4.2); Glucose 188 mg/dL (74-106); Protein, Total 6.9 g/dL (6.4-8.2); Sodium Level 138 mmol/L (136-145)
[2024-06-11 11:11] LABS: Vitamin B12 427 pg/mL (211-911)
== END | disposition home or self-care (01) ==
PROVIDERS: PCP Family Medicine; Referring Provider Family Medicine; Visit Provider Family Medicine
DX: E11.9 Type 2 diabetes mellitus without complications (principal); E53.8 Deficiency of other specified B group vitamins
CPT/HCPCS: 36415; 80053; 82607; 85025

== ENCOUNTER 2024-12-14 12:21 | Outpatient (CLI) | payer MEDICARE, SELFPAY ==
--- NOTE | 2024-12-14 12:54 | BI_ITS ---
EXAM: SCRN MAMM (CAD)W/MARIE BILAT DATE: 12/14/2024 CLINICAL HISTORY: F, Age 64 y/o , SCREENING No family history. BREAST CANCER RISK ASSESSMENT: Not assessed. TECHNIQUE: Bilateral screening digital breast tomosynthesis with 2D and 3D images. Computer aided detection. COMPARISON: Prior exam(s) dated December 31, 2022.. FINDINGS: TISSUE DENSITY: The breast tissue is heterogenously dense, which may obscure small masses. Bilateral Breast Mammographic Findings: No significant masses, calcifications or other abnormalities are identified. No suspicious masses, areas of developing architectural distortion, or suspicious calcifications. There has been no significant interval change. BI/SCRN MAMM (CAD)W/MARIE BILAT IMPRESSION: OVERALL FINAL ASSESSMENT: BIRADS 1 NEGATIVE RECOMMENDATION: Routine annual follow-up in 1 Year A letter with findings and recommendations will be mailed to the patient. Reading Location: [place] [id number]
--- NOTE | 2024-12-14 13:11 | BD_ITS ---
PROCEDURE: DEXA BONE DENSITY STUDY 12/14/2024 REASON FOR EXAM: F, age 64 y/o . Postmenopausal. TECHNIQUE: DXA scan of the lumbar spine and both hips, using make and model. REFERENCE LINKS: [facility] Adult Positions FINDINGS: BMD and T-SCORES Lumbar spine: 1.243 g/cm2, T-Score 2.0 L1 through L4 Left femoral neck: 0.881 g/cm2, T-Score 0.3 Femoral neck comparison data not recommended for monitoring change. Left total hip: 0.937 g/cm2, T-Score 0.0 Right femoral neck: 0.889 g/cm2, T-Score 0.4 Femoral neck comparison data not recommended for monitoring change. Right total hip: 0.889 g/cm2, T-Score -0.4 Fracture Risk Calculation: FRAX (10-year Fracture Risk) Score: FRAX scores should never be reported in a patient with osteoporosis on DEXA or for any patient that is on bone medication. The patient doesmeet the pharmacological treatment recommendations for prevention of osteoporosis BD/Dexa Bone Density Study IMPRESSION: NORMAL T-SCORES. Recommend follow-up as clinically warranted. Reading Location: [place] [id number]
== END 2024-12-14 23:59 | disposition home or self-care (01) ==
PROVIDERS: PCP Family Medicine; Referring Provider Family Medicine; Visit Provider Family Medicine
DX: Z12.31 Encounter for screening mammogram for malignant neoplasm of breast (principal); Z13.820 Encounter for screening for osteoporosis; Z78.0 Asymptomatic menopausal state
CPT/HCPCS: 77063; 77067; 77080

== ENCOUNTER → 2025-03-02 | Outpatient (CLI) | payer MEDICARE, SELFPAY ==
[2025-03-02 18:01] LABS: AST(SGOT) 16 U/L (<=31); Alanine Aminotransfer ALT/SGPT 63 U/L (<=34); Albumin, Serum 3.7 g/dL (3.4-4.8); Alkaline Phosphatase 102 U/L (35-104); Anion Gap 13 (5-15); BUN 23 mg/dL (4-19); BUN/Creat Ratio 25.7 RATIO (10-20); Calcium,Total 9.3 mg/dL (7.6-11.0); Carbon Dioxide 16.9 mmol/L (21.0-32.0); Chloride 110 mmol/L (98-108); Cholesterol 101 mg/dL (<=200); Globulin 2.7 g/dL (2.2-4.2); Glucose 101 mg/dL (70-99); Low Density Lipoprotein Calc. 44 mg/dL; Potassium 5.0 mmol/L (3.3-5.1); Triglycerides 98 mg/dL; Very Low Density Lipoprotein 20 mg/dL (5-40); cholesterol:hdl ratio screen 2.73
[2025-03-02 18:03] LABS: CRP 5.96 mg/L (0.0-3.0); Uric Acid 7.0 mg/dL (2.6-6.0)
[2025-03-02 22:16] LABS: Creatinine, Urine (random) 83.70 mg/dL (28.00-217.00)
[2025-03-02 22:18] LABS: Microalbumin,Random Urine < 12.0 mg/L (NO RANGE EST.)
[2025-03-04 11:08] LABS: ANTINUCLEAR ANTIBODIES DIRECT Negative (Negative)
== END | disposition home or self-care (01) ==
LOC: BFHLAB 13:49
PROVIDERS: PCP Family Medicine; Visit Provider Family Medicine
DX: E11.9 Type 2 diabetes mellitus without complications (principal); E78.5 Hyperlipidemia, unspecified; I10 Essential (primary) hypertension; M25.50 Pain in unspecified joint; M79.10 Myalgia, unspecified site; M10.9 Gout, unspecified
CPT/HCPCS: 36415; 80053; 80061; 82043; 82570; 84550; 85652; 86038; 86140; 86200; 86431; 86617

== ENCOUNTER → 2025-05-10 | Outpatient (CLI) | payer MEDICARE, SELFPAY ==
--- OUTSIDE RECORDS SUMMARY | 2025-05-10 23:17 | XMS RPT_ITS | CCD ---
Author Organization [facility] Inform ion Partnership [facility] Care Team Providers Care Drapery Operator Name Role Phone DO Leyda Mukherjee Primary Care Provider [phone] Dr. Laurie Koehler Attending Provider Dr. Cleo Shaffer MD Primary Care Provider [phone] Dr. Cleo Shaffer MD Attending Provider Dr. Cleo Shaffer MD Referring Provider Dr. Elissa Coronado DO Attending Provider [phone] Cleo Shaffer Primary Care Unavailable Cleo Shaffer Referring Unavailable Cleo Shaffer Attending Unavailable Cleo Shaffer Primary Care Unavailable Elissa Coronado Attending Unavailable Cleo Shaffer Primary Care Unavailable Cleo Shaffer Referring Unavailable Cleo Shaffer Attending Unavailable Allergies Allergy Classification Reported Allergen(s) Allergy Type Date of Onset Reaction(s) Facility (6 sources) Ramipril Drug Allergy 05-14-2021 Other [facility] (1 source) Ramipril Drug Allergy 05-14-2021 [facility] Repository Medications Current Medications Medication Drug Class(es) Dates Sig (Normalized) Sig (Original) dexamethasone 6 mg oral tablet (6 sources) Corticosteroid Start: 05-14-2021 take 1 tablet by mouth once daily Dexamethasone (Decadron) 6 mg tablet Active 6 mg PO DAILY May 14, 2021 12:00am Completed/Discontinued Medications Medication Drug Class(es) Dates Sig (Normalized) Sig (Original) cephalexin 500 mg oral capsule (6 sources) Cephalosporin Antibacterial Start: 05-19-2021 End: 05-26-2021 take 1 capsule by mouth twice daily Cephalexin 500 mg capsule Discontinued 500 mg PO TWICE A DAY 14 7 0 May 19, 2021 12:00am May 25, 2021 12:00am May 26, 2021 12:01am Problems Problem Classification Problem Date Documented Da te Episodic/Chronic Diabetes mellitus without complication (7 sources) Type 2 diabetes mellitus; Translations: [Type 2 diabetes mellitus without complications] Onset: 03-08-2025 08-16-2013 Chronic Disorders of lipid metabolism (6 sources) Hyperlipidemia; Translations: [Hyperlipidemia, unspecified] 08-16-2013 Chronic Essential hypertension (6 sources) Benign essential hypertension; Translations: [Essential (primary) hypertension] 08-16-2013 Chronic Other nutritional; endocrine; and metabolic disorders (6 sources) Obesity; Translations: [Obesity, unspecified] 08-16-2013 Chronic Other screening for suspected conditions (not mental disorders or infectious disease) (1 source) Encounter for screening mammogram for malignant neoplasm of breast; Translations: [Encounter for screening mammogram for malignant neoplasm of breast] Onset: 12-17-2024 Episodic Viral infection (6 sources) Disease caused by 2019-nCoV; Translations: [COVID-19] 05-14-2021 Episodic Results Test Name Value Interpretation Reference Range Facility CCP IgG Antibodieson 025 CCP IgG Ab. 6 units Normal 0-19 [facility] Comment on above: Result Comment: Nega tive <20 Weak positive 20 - 39 Moderate positive 40 - 59 Strong positive >59 Performed at: [facility] [address] [id number] Wellness Rn: Debra Miles MD, Phone: [phone] Performed at: [facility] [address] [id number] Wellness Rn: Last Magallanes PhD, Phone: [phone] Performed By: #### L 501.1400, L7000.5800, L505.7010, L3100.5475, L4600.0100, L500.4050, L501.6710, L502.0250, L500.4100, L101.9900 #### [facility] [address] [place], [address] Lyme Antibodies,W Bloton Lyme Additional Comment Normal . [facility] Comment on above: Result Comment: Per CDC criteria, the Lyme IgG Immunoblot is interpreted as positive if IgG-class antibodies are detected to 5 or more B. burgdorferi proteins, and the Lyme IgM Immunoblot is interpreted as positive if IgM-class antibodies are detected to 2 or more B. burgdorferi proteins. Immunoblot patterns not meeting these criteria should not be interpreted as positive. Epitopes from certain B. burgdorferi proteins (e.g., p41) are conserved across other bacteria, which may lead to the detection of IgM-and/or IgG class antibodies on the Lyme disease immunoblots in patients without Lyme disease. Immunoblot should only be ordered on specimens that are positive or equivocal by an FDA-licensed Lyme disease antibody screening test (e.g., EIA). Results of the Lyme IgM immunoblot should not be considered in patients with 30 or more days of symptoms. Performed By: #### L 501.1400, L7000.5800, L505.7010, L3100.5475, L4600.0100, L500.4050, L501.6710, L502.0250, L500.4100, L101.9900 #### [facility] [address] [place], [address] LYME IgG INTERP Negative Normal Negative [facility] Comment on above: Performed By: #### L 501.1400, L7000.5800, L505.7010, L3100.5475, L4600.0100, L500.4050, L501.6710, L502.0250, L500.4100, L101.9900 #### [facility] [address] [place], [place], [id number] LYME IgM INTERP Negative Normal Negative [facility] Comment on above: Result Comment: Flakita kee Note: Lyme immunoblot alone is not recommended for the diagnosis of Lyme disease. Current guidelines recommend the use of a two-tiered approach to Lyme serology testing to improve the sensitivity and specificity of testing. [facility] offers test code 143979 Lyme Disease Serology with Reflex to aid in the diagnosis of Lyme Disease. Performed By: #### L 501.1400, L7000.5800, L505.7010, L3100.5475, L4600.0100, L500.4050, L501.6710, L502.0250, L500.4100, L101.9900 #### [facility] [address] [place], [place], [id number] P18 Ab Absent Normal . [facility] Comment on above: Performed By: #### L 501.1400, L7000.5800, L505.7010, L3100.5475, L4600.0100, L500.4050, L501.6710, L502.0250, L500.4100, L101.9900 #### [facility] [address] [place], [place], [id number] P23 Ab Absent Normal . [facility] Comment on above: Performed By: #### L 501.1400, L7000.5800, L505.7010, L3100.5475, L4600.0100, L500.4050, L501.6710, L502.0250, L500.4100, L101.9900 #### [facility] [address] [place], [place], [id number] P28 Ab Absent Normal . [facility] Comment on above: Performed By: #### L 501.1400, L7000.5800, L505.7010, L3100.5475, L4600.0100, L500.4050, L501.6710, L502.0250, L500.4100, L101.9900 #### [facility] [address] [place], [place], [id number] P30 Ab Absent Normal . [facility] Comment on above: Performed By: #### L 501.1400, L7000.5800, L505.7010, L3100.5475, L4600.0100, L500.4050, L501.6710, L502.0250, L500.4100, L101.9900 #### [facility] [address] [place], [address] P39 Ab Absent Normal . [facility] Comment on above: Performed By: #### L 501.1400, L7000.5800, L505.7010, L3100.5475, L4600.0100, L500.4050, L501.6710, L502.0250, L500.4100, L101.9900 #### [facility] [address] [place], [address] P41 Ab Absent Normal . [facility] Comment on above: Performed By: #### L 501.1400, L7000.5800, L505.7010, L3100.5475, L4600.0100, L500.4050, L501.6710, L502.0250, L500.4100, L101.9900 #### [facility] [place], [place], [facility] P45 Ab Absent Normal . [facility] Comment on above: Performed By: #### L 501.1400, L7000.5800, L505.7010, L3100.5475, L4600.0100, L500.4050, L501.6710, L502.0250, L500.4100, L101.9900 #### [facility] [address] [place], [facility] P58 Ab Present Normal . [facility] Comment on above: Performed By: #### L 501.1400, L7000.5800, L505.7010, L3100.5475, L4600.0100, L500.4050, L501.6710, L502.0250, L500.4100, L101.9900 #### [facility] [address] [place], [address] P66 Ab Absent Normal . [facility] Comment on above: Performed By: #### L 501.1400, L7000.5800, L505.7010, L3100.5475, L4600.0100, L500.4050, L501.6710, L502.0250, L500.4100, L101.9900 #### [facility] [address] [place], [place], [id number] P93 Ab Absent Normal . [facility] Comment on above: Performed By: #### L 501.1400, L7000.5800, L505.7010, L3100.5475, L4600.0100, L500.4050, L501.6710, L502.0250, L500.4100, L101.9900 #### [facility] [address] [place], [address] ANTINUCLEAR ANTIBODIES DIREC Ton 03-04-2025 AUBREY,DIRECT Negative Normal Negative [facility] Comment on above: Result Comment: Perf ormed at: - [facility] [address] [id number] Wellness Rn: Last Magallanes PhD, Phone: [phone] Performed By: #### L 501.1400, L7000.5800, L505.7010, L3100.5475, L4600.0100, L500.4050, L501.6710, L502.0250, L500.4100, L101.9900 #### [facility] [address] [place], [address] Anion gap in Serum or Plasma Ordered By: Elissa Coronado on 03-02-2025 Anion gap [Moles/Vol] 13 mmol/L 5-15 [facility] BUN/creatinine ratioOrdered By: Elissa Coronado on 03-02-2025 Urea nitrogen/Creatinine [Mass ratio] 25.7 mg/mg High 10-20 [facility] Bilirubin, totalOrdered By: Elissa Coronado on 03-02-2025 Bilirubin [Mass/Vol] 0.16 mg/dL 0.00-1.30 [facility] CRPon 03-02-2025 C-REACTIVE PROT 5.96 mg/L High 0.0-3.0 [facility] Comment on above: Performed By: #### L 501.1400, L7000.5800, L505.7010, L3100.5475, L4600.0100, L500.4050, L501.6710, L502.0250, L500.4100, L101.9900 #### [facility] [address] [place], [address] Calculated very low density lipoprotein (VLDL) cholesterol measurementOrdered By: Elissa Coronado on 03-02-2025 Calculated very low density lipoprotein (VLDL) cholesterol measurement 20 mg/dL 5-40 [facility] Carbon dioxide, total [Moles /volume] in Central venous bloodOrdered By: Elissa Coronado on 03-02-2025 CO2 [Moles/Vol] 16.9 mmol/L Low 21.0-32.0 [facility] Chloride assayOrdered By: Lexi Coronado on 03-02-2025 Chloride [Moles/Vol] 110 mmol/L High 98-108 [facility] Comprehensive Metabolic Prof ilon 03-02-2025 Albumin [Mass/Vol] 3.7 g/dL Normal 3.4-4.8 [facility] Comment on above: Performed By: #### L 501.1400, L7000.5800, L505.7010, L3100.5475, L4600.0100, L500.4050, L501.6710, L502.0250, L500.4100, L101.9900 #### [facility] [address] [place] [place], [address] Albumin/Globulin [Mass ratio] 1.4 {ratio} Normal 0.9-2.4 [facility] Comment on above: Performed By: #### L 501.1400, L7000.5800, L505.7010, L3100.5475, L4600.0100, L500.4050, L501.6710, L502.0250, L500.4100, L101.9900 #### [facility] [address] [place], [place], [id number] ALK PHOS 102 U/L Normal 35-104 [facility] Comment on above: Performed By: #### L 501.1400, L7000.5800, L505.7010, L3100.5475, L4600.0100, L500.4050, L501.6710, L502.0250, L500.4100, L101.9900 #### [facility] [address] [place], [address] ALT [Catalytic activity/Vol] 63 U/L High <=34 [facility] Comment on above: Performed By: #### L 501.1400, L7000.5800, L505.7010, L3100.5475, L4600.0100, L500.4050, L501.6710, L502.0250, L500.4100, L101.9900 #### [facility] [address] [place], [address] AST [Catalytic activity/Vol] 16 U/L Normal <=31 [facility] Comment on above: Performed By: #### L 501.1400, L7000.5800, L505.7010, L3100.5475, L4600.0100, L500.4050, L501.6710, L502.0250, L500.4100, L101.9900 #### [facility] [address] [place], [address] Bilirubin [Mass/Vol] 0.16 mg/dL Normal 0.00-1.30 [facility] Comment on above: Performed By: #### L 501.1400, L7000.5800, L505.7010, L3100.5475, L4600.0100, L500.4050, L501.6710, L502.0250, L500.4100, L101.9900 #### [facility] [address] [place], [address] BUN/CRE 25.7 RATIO High 10-20 [facility] Comment on above: Performed By: #### L 501.1400, L7000.5800, L505.7010, L3100.5475, L4600.0100, L500.4050, L501.6710, L502.0250, L500.4100, L101.9900 #### [facility] [address] [place], [address] Calcium [Mass/Vol] 9.3 mg/dL Normal 7.6-11.0 [facility] Comment on above: Performed By: #### L 501.1400, L7000.5800, L505.7010, L3100.5475, L4600.0100, L500.4050, L501.6710, L502.0250, L500.4100, L101.9900 #### [facility] [address] [place], [place], [phone] (406) Chloride [Moles/Vol] 110 mmol/L High 98-108 [facility] Comment on above: Performed By: #### L 501.1400, L7000.5800, L505.7010, L3100.5475, L4600.0100, L500.4050, L501.6710, L502.0250, L500.4100, L101.9900 #### [facility] [address] [place], [address] CO2 [Moles/Vol] 16.9 mmol/L Low 21.0-32.0 [facility] Comment on above: Performed By: #### L 501.1400, L7000.5800, L505.7010, L3100.5475, L4600.0100, L500.4050, L501.6710, L502.0250, L500.4100, L101.9900 #### [facility] [address] [place], [address] Creatinine [Mass/Vol] 0.91 mg/dL Normal 0.70-1.20 [facility] Comment on above: Performed By: #### L 501.1400, L7000.5800, L505.7010, L3100.5475, L4600.0100, L500.4050, L501.6710, L502.0250, L500.4100, L101.9900 #### [facility] [address] [place], [place], [phone] ([phone]) GAP 13 Normal 5-15 [facility] Comment on above: Performed By: #### L 501.1400, L7000.5800, L505.7010, L3100.5475, L4600.0100, L500.4050, L501.6710, L502.0250, L500.4100, L101.9900 #### [facility] [address] [place], [address] GFR/1.73 sq M.predicted among non-blacks MDRD (S/P/Bld) [Vol rate/Area] 70 mL/min/{1.73_m2} Normal >60 [facility] Comment on above: Result Comment: mL/m in/1.73m2 CKD-EPI Creatinine Equation (2020) Performed By: #### L 501.1400, L7000.5800, L505.7010, L3100.5475, L4600.0100, L500.4050, L501.6710, L502.0250, L500.4100, L101.9900 #### [facility] [address] [place], [place], [id number] Globulin (S) [Mass/Vol] 2.7 g/dL Normal 2.2-4.2 [facility] Comment on above: Performed By: #### L 501.1400, L7000.5800, L505.7010, L3100.5475, L4600.0100, L500.4050, L501.6710, L502.0250, L500.4100, L101.9900 #### [facility] [address] [place], [address] Glucose [Mass/Vol] 101 mg/dL High 70-99 [facility] Comment on above: Performed By: #### L 501.1400, L7000.5800, L505.7010, L3100.5475, L4600.0100, L500.4050, L501.6710, L502.0250, L500.4100, L101.9900 #### [facility] [address] [place], [address] Potassium [Moles/Vol] 5.0 mmol/L Normal 3.3-5.1 [facility] Comment on above: Performed By: #### L 501.1400, L7000.5800, L505.7010, L3100.5475, L4600.0100, L500.4050, L501.6710, L502.0250, L500.4100, L101.9900 #### [facility] [address] [place], [address] Sodium [Moles/Vol] 140 mmol/L Normal 133-145 [facility] Comment on above: Performed By: #### L 501.1400, L7000.5800, L505.7010, L3100.5475, L4600.0100, L500.4050, L501.6710, L502.0250, L500.4100, L101.9900 #### [facility] [address] [place], [address] T PROT 6.4 g/dL Normal 5.9-8.4 [facility] Comment on above: Performed By: #### L 501.1400, L7000.5800, L505.7010, L3100.5475, L4600.0100, L500.4050, L501.6710, L502.0250, L500.4100, L101.9900 #### [facility] [address], [address] Urea nitrogen [Mass/Vol] 23 mg/dL High 4-19 [facility] Comment on above: Performed By: #### L 501.1400, L7000.5800, L505.7010, L3100.5475, L4600.0100, L500.4050, L501.6710, L502.0250, L500.4100, L101.9900 #### [facility] [address] [place], [place], [id number] Erythrocyte Sed Rateon 03-02 SED RATE 18 mm/hr Normal 0-30 [facility] Comment on above: Performed By: #### L 501.1400, L7000.5800, L505.7010, L3100.5475, L4600.0100, L500.4050, L501.6710, L502.0250, L500.4100, L101.9900 #### [facility] [address] [place], [place], [id number] Erythrocyte sedimentation ra teOrdered By: Elissa Coronado on 03-02-2025 ESR (Bld) [Velocity] 18 mm/h 0-30 [facility] Glomerular filtration rate ( GFR) estimation/1.73 sq m using serum, plasma, or whole bOrdered By: Elissa Coronado on 03-02-2025 GFR/1.73 sq M.predicted among non-blacks MDRD (S/P/Bld) [Vol rate/Area] 70 mL/min/{1.73_m2} >60 [facility] Comment on above: mL/min/1.73m2 CKD-EP I Creatinine Equation (2020) LDL calc ser/plasOrdered By: Elissa Coronado on 03-02-2025 Cholesterol in LDL [Mass/Vol] 44 mg/dL [facility] Comment on above: Ihmttamehu=176-403 m g/dL & Higher Mlsc=228 mg/dL or greater Laboratory - Chemistry and C hemistry - challengeOrdered By: Elissa Coronado on 03-02-2025 AST [Catalytic activity/Vol] 16 U/L <32 [facility] Lipid Profileon 03-02-2025 CHOL:HDL 2.73 Normal [facility] Comment on above: Performed By: #### L 501.1400, L7000.5800, L505.7010, L3100.5475, L4600.0100, L500.4050, L501.6710, L502.0250, L500.4100, L101.9900 #### [facility] [address] [place], [address] Cholesterol [Mass/Vol] 101 mg/dL Normal <=200 [facility] Comment on above: Result Comment: Chol esterol level, Desirable <200 mg/dL Borderline high cholesterol 200-239 mg/dL High cholesterol >=240 mg/dL Recommendations of the NCEP Adult Treatment Panel for the following risk-cutoff thresholds for the [place] population. Performed By: #### L 501.1400, L7000.5800, L505.7010, L3100.5475, L4600.0100, L500.4050, L501.6710, L502.0250, L500.4100, L101.9900 #### [facility] [address] [place], [address] ( Cholesterol in HDL [Mass/Vol] 37 mg/dL Low [facility] Comment on above: Result Comment: Lisandra onal Cholesterol Education Program (NCEP) guidelines: <40 mg/dL: Low HDL-cholesterol (major risk factor for CHD) >= 60 mg/dL: High HDL-cholesterol (negative risk factor for CHD) HDL-cholesterol is affected by a number of factors, e.g. smoking, exercise, hormones, sex and age. Performed By: #### L 501.1400, L7000.5800, L505.7010, L3100.5475, L4600.0100, L500.4050, L501.6710, L502.0250, L500.4100, L101.9900 #### [facility] [address] [place], [address] Cholesterol in LDL [Mass/Vol] 44 mg/dL Normal [facility] Comment on above: Result Comment: Bord rfcora=477-594 mg/dL Higher Itdq=406 mg/dL or greater Performed By: #### L 501.1400, L7000.5800, L505.7010, L3100.5475, L4600.0100, L500.4050, L501.6710, L502.0250, L500.4100, L101.9900 #### [facility] [address] [place], [place], [id number] Cholesterol in VLDL [Mass/Vol] 20 mg/dL Normal 5-40 [facility] Comment on above: Performed By: #### L 501.1400, L7000.5800, L505.7010, L3100.5475, L4600.0100, L500.4050, L501.6710, L502.0250, L500.4100, L101.9900 #### [facility] [address] [place], [place], [id number] Triglyceride [Mass/Vol] 98 mg/dL Normal [facility] Comment on above: Result Comment: The drugs N-Acetylcysteine and Metamizole may falsely depress this assay. Normal range: <150 mg/dL Borderline High: 150-199 mg/dL High: 200-499 mg/dL Very High: >500 mg/dL Performed By: #### L 501.1400, L7000.5800, L505.7010, L3100.5475, L4600.0100, L500.4050, L501.6710, L502.0250, L500.4100, L101.9900 #### [facility] [address] [place], [place], [id number] Microalb:Creat Ratio,Random URon 03-02-2025 MALB:CREAT UNABLE TO CALCULATE Normal [facility] Comment on above: Performed By: #### L 501.1400, L7000.5800, L505.7010, L3100.5475, L4600.0100, L500.4050, L501.6710, L502.0250, L500.4100, L101.9900 #### [facility] [address] [place], [address] MICROALBUMIN,UR < 12.0 Normal NO RANGE EST. [facility] Comment on above: Performed By: #### L 501.1400, L7000.5800, L505.7010, L3100.5475, L4600.0100, L500.4050, L501.6710, L502.0250, L500.4100, L101.9900 #### [facility] [address] [place], [address] Microalbumin/creat ratio urO rdered By: Elissa Coronado on 03-02-2025 Urine microalbumin/creatinine ratio measurement UNABLE TO CALCULATE mg/g CRE [facility] Potassium measurement (mass/ volume)Ordered By: Elissa Coronado on 03-02-2025 Potassium (Unsp spec) [Mass/Vol] 5.0 mmol/L 3.3-5.1 [facility] Random urine creatinine jose r urement (mass/volume)Ordered By: Elissa Coronado on 03-02-2025 Creatinine Unsp time (U) [Mass/Vol] 83.70 mg/dL 28.00-217.00 [facility] Rheumatoid Factoron 03-02-20 25 RHEUMATOID FAC < 10.0 Normal <15 [facility] Comment on above: Performed By: #### L 501.1400, L7000.5800, L505.7010, L3100.5475, L4600.0100, L500.4050, L501.6710, L502.0250, L500.4100, L101.9900 #### [facility] [address] [place], [address] Screening total cholesterol/ high density lipoprotein (HDL) cholesterol ratioOrdered By: Elissa Coronado on 03-02-2025 Cholesterol.total/Winsome sterol in HDL [Mass ratio] 2.73 {ratio} [facility] Serum creatinine measurement (mass/volume)Ordered By: Elissa Coronado on 03-02-2025 Creatinine [Mass/Vol] 0.91 mg/dL 0.70-1.20 [facility] Serum globulin measurementOr dered By: Elissa Coronado on 03-02-2025 Globulin (S) [Mass/Vol] 2.7 g/dL 2.2-4.2 [facility] Serum glucose measurement (m ass/volume)Ordered By: Elissa Coronado on 03-02-2025 Glucose [Mass/Vol] 101 mg/dL High 70-99 [facility] Serum or plasma C reactive p rotein measurement (mass/volume)Ordered By: Elissa Coronado on 03-02-2025 CRP [Mass/Vol] 5.96 mg/L High 0.0-3.0 [facility] Serum or plasma alanine townsend otransferase (ALT) measurementOrdered By: Elissa Coronado on 03-02-2025 ALT [Catalytic activity/Vol] 63 U/L High <35 [facility] Serum or plasma albumin jose r urement (mass/volume)Ordered By: Elissa Coronado on 03-02-2025 Albumin [Mass/Vol] 3.7 g/dL 3.4-4.8 [facility] Serum or plasma albumin/glob ulin mass ratioOrdered By: Elissa Coronado on 03-02-2025 Albumin/Globulin [Mass ratio] 1.4 {ratio} 0.9-2.4 [facility] Serum or plasma alkaline leta sphatase measurementOrdered By: Elissa Coronado on 03-02-2025 ALP [Catalytic activity/Vol] 102 U/L 35-104 [facility] Serum or plasma calcium jose r urement (mass/volume)Ordered By: Elissa Coronado on 03-02-2025 Calcium [Mass/Vol] 9.3 mg/dL 7.6-11.0 [facility] Serum or plasma cholesterol in HDL measurement (mass/volume)Ordered By: Elissa Coronado on 03-02-2025 Cholesterol in HDL [Mass/Vol] 37 mg/dL Low >40 [facility] Comment on above: National Cholesterol Education Program (NCEP) guidelines:<40 mg/dL: Low HDL-cholesterol (major risk factor for CHD)>= 60 mg/dL: High HDL-cholesterol (negative risk factor for CHD)HDL-cholesterol is affected by a number of factors, e.g. smoking, exercise, hormones, sex and age. Serum or plasma cholesterol measurement (mass/volume)Ordered By: Elissa Coronado on 03-02-2025 Cholesterol [Mass/Vol] 101 mg/dL <201 [facility] Comment on above: Cholesterol level, D esirable <200 mg/dLBorderline high cholesterol 200-239 mg/dLHigh cholesterol >=240 mg/dLRecommendations of the NCEP Adult Treatment Panel for the following risk-cutoff thresholds for the [place] population. Serum or plasma urea nitroge n measurement (mass/volume)Ordered By: Elissa Coronado on 03-02-2025 Urea nitrogen [Mass/Vol] 23 mg/dL High 4-19 [facility] Serum or plasma uric acid me asurement (mass/volume)Ordered By: Elissa Coronado on 03-02-2025 Urate [Mass/Vol] 7.0 mg/dL High 2.6-6.0 [facility] Comment on above: The drugs N-Acetylcy steine and Metamizole may falsely depress this assay. Serum rheumatoid factor dete ctionOrdered By: Elissa Coronado on 03-02-2025 Rheumatoid factor Ql (S) < 10.0 IU/mL <15 [facility] Sodium levelOrdered By: Elissa Coronado on 03-02-2025 Sodium [Moles/Vol] 140 mmol/L 133-145 [facility] Total proteinOrdered By: Kiera Coronado on 03-02-2025 Protein [Mass/Vol] 6.4 g/dL 5.9-8.4 [facility] Triglycerides measurementOrd ered By: Elissa Coronado on 03-02-2025 Triglyceride [Mass/Vol] 98 mg/dL <199 [facility] Comment on above: The drugs N-Acetylcy steine and Metamizole may falsely depress this assay. Normal range: <150 mg/dLBorderline High: 150-199 mg/dLHigh: 200-499 mg/dLVery High: >500 mg/dL Uric Acidon 03-02-2025 URIC 7.0 mg/dL High 2.6-6.0 [facility] Comment on above: Result Comment: The drugs N-Acetylcysteine and Metamizole may falsely depress this assay. Performed By: #### L 501.1400, L7000.5800, L505.7010, L3100.5475, L4600.0100, L500.4050, L501.6710, L502.0250, L500.4100, L101.9900 #### [facility] Laboratory [address] [place], [address] Urine albumin measurement [facility] detection limit of 20 mg/L or less (mass/volume)Ordered By: Elissa Coronado on 03-02-2025 Albumin DL <= 20 mg/L (U) [Mass/Vol] < 12.0 mg/L NO RANGE EST. [facility] Dexa Bone Density Studyon Dexa Bone Density Study [facility] Imaging Services [address] [place], [place] [address] Dexa Bone Density Study MR#: [id number] Acct: [id number] Name: JONO BELLO Rep #: [id number] : 1960 F 64 From: Aldo kitchen MD PCP: Dr. Cleo Shaffer MD Status: REG CLI Study: Dexa Bone Density Study Date of Exam: 12/14/24 Exam# [id number] Ordering Dr: Cleo Shaffer MD PROCEDURE: DEXA BONE DENSITY STUDY 12/14/2024 REASON FOR EXAM: F, age 64 y/o . Postmenopausal. TECHNIQUE: DXA scan of the lumbar spine and both hips, using make and model. REFERENCE LINKS: ISCD Adult Positions FINDINGS: BMD and T-SCORES Lumbar spine: 1.243 g/cm2, T-Score 2.0 L1 through L4 Left femoral neck: 0.881 g/cm2, T-Score 0.3 Femoral neck comparison data not recommended for monitoring change. Left total hip: 0.937 g/cm2, T-Score 0.0 Right femoral neck: 0.889 g/cm2, T-Score 0.4 Femoral neck comparison data not recommended for monitoring change. Right total hip: 0.889 g/cm2, T-Score -0.4 Fracture Risk Calculation: FRAX (10-year Fracture Risk) Score: FRAX scores should never be reported in a patient with osteoporosis on DEXA or for any patient that is on bone medication. The patient doesmeet the pharmacological treatment recommendations for prevention of osteoporosis BD/Dexa Bone Density Study IMPRESSION: NORMAL T-SCORES. Recommend follow-up as clinically warranted. Reading Location: [place] [address] CC: Dr. Cleo Shaffer MD Hog Buyer: Signed Normal [facility] SCRN MAMM (CAD)W/MARIE BILATo n 12-14-2024 SCRN MAMM (CAD)W/MARIE BILAT [facility] Imaging Services [address] [place] [address] SCRN MAMM (CAD)W/MARIE BILAT MR#: [id number] Acct: [id number] Name: JONO BELLO Rep #: [id number] : 1960 F 64 From: Aldo kitchen MD PCP: Dr. Cleo Shaffer MD Status: REG [facility] Study: SCRN MAMM (CAD)W/MARIE BILAT Date of Exam: 11/24 10/19 Exam# [id number] Ordering Dr: Cleo Shaffer MD EXAM: SCRN MAMM (CAD)W/MARIE BILAT DATE: 12/14/2024 CLINICAL HISTORY: F, Age 64 y/o , SCREENING No family history. BREAST CANCER RISK ASSESSMENT: Not assessed. TECHNIQUE: Bilateral screening digital breast tomosynthesis with 2D and 3D images. Computer aided detection. COMPARISON: Prior exam(s) dated December 31, 2022.. FINDINGS: TISSUE DENSITY: The breast tissue is heterogenously dense, which may obscure small masses. Bilateral Breast Mammographic Findings: No significant masses, calcifications or other abnormalities are identified. No suspicious masses, areas of developing architectural distortion, or suspicious calcifications. There has been no significant interval change. BI/SCRN MAMM (CAD)W/MARIE BILAT IMPRESSION: OVERALL FINAL ASSESSMENT: BIRADS 1 NEGATIVE RECOMMENDATION: Routine annual follow-up in 1 Year A letter with findings and recommendations will be mailed to the patient. Reading Location: [place] [address] CC: Dr. Cleo Shaffer MD Hog Buyer: Signed Normal [facility] Vitamin B12on 06-11-2024 Cobalamin (Vitamin B12) [Mass/Vol] 427 pg/mL Normal 211-911 [facility] Comment on above: Performed By: #### L 501.1400, L7000.5800, L505.7010, L3100.5475, L4600.0100, L500.4050, L501.6710, L502.0250, L500.4100, L101.9900 #### [facility] Laboratory [address] [place], [address] CBC W/Diff, Automatedon 05-25 Absolute Lymph 1.40 X10 3/uL Normal 0.83-4.51 [facility] Comment on above: Performed By: #### L 501.1400, L7000.5800, L505.7010, L3100.5475, L4600.0100, L500.4050, L501.6710, L502.0250, L500.4100, L101.9900 #### [facility] Laboratory [address] [place], [address] Absolute Neut 4.3 X10 3/uL Normal 2.0-7.7 [facility] Comment on above: Performed By: #### L 501.1400, L7000.5800, L505.7010, L3100.5475, L4600.0100, L500.4050, L501.6710, L502.0250, L500.4100, L101.9900 #### [facility] Laboratory [address] [place], [address] Basophils/100 WBC (Bld) 0.7 % Normal 0-1 [facility] Comment on above: Performed By: #### L 501.1400, L7000.5800, L505.7010, L3100.5475, L4600.0100, L500.4050, L501.6710, L502.0250, L500.4100, L101.9900 #### [facility] Laboratory [address] [place], [address] (120 Eosinophils/100 WBC (Bld) 1.3 % Normal 0-5 [facility] Comment on above: Performed By: #### L 501.1400, L7000.5800, L505.7010, L3100.5475, L4600.0100, L500.4050, L501.6710, L502.0250, L500.4100, L101.9900 #### [facility] Laboratory [address] [place], [address] (244 Erythrocyte distribution width (RBC) [Ratio] 11.7 % Normal 11.6-14.6 [facility] Comment on above: Performed By: #### L 501.1400, L7000.5800, L505.7010, L3100.5475, L4600.0100, L500.4050, L501.6710, L502.0250, L500.4100, L101.9900 #### [facility] Laboratory [address] [place], [address] (397 Hematocrit (Bld) [Volume fraction] 36.3 % Low 37-47 [facility] Comment on above: Performed By: #### L 501.1400, L7000.5800, L505.7010, L3100.5475, L4600.0100, L500.4050, L501.6710, L502.0250, L500.4100, L101.9900 #### [facility] Laboratory [address] [place], [place], [phone] (599 Hemoglobin (Bld) [Mass/Vol] 12.1 g/dL Normal 12.0-15.0 [facility] Comment on above: Performed By: #### L 501.1400, L7000.5800, L505.7010, L3100.5475, L4600.0100, L500.4050, L501.6710, L502.0250, L500.4100, L101.9900 #### [facility] Laboratory [address] [place], [address] IG% 0.300 Normal 0.0-0.9 [facility] Comment on above: Result Comment: IG% - Immature Granulocytes (promyelocytes, myelocytes and metamyelocytes) > 1% indicates that a LEFT SHIFT is Present. Performed By: #### L 501.1400, L7000.5800, L505.7010, L3100.5475, L4600.0100, L500.4050, L501.6710, L502.0250, L500.4100, L101.9900 #### [facility] Laboratory [address] [place], [address] Lymphocytes/100 WBC (Bld) 22.8 % Normal 19-41 [facility] Comment on above: Performed By: #### L 501.1400, L7000.5800, L505.7010, L3100.5475, L4600.0100, L500.4050, L501.6710, L502.0250, L500.4100, L101.9900 #### [facility] Laboratory [address] [place], [address] MCH (RBC) [Entitic mass] 30.6 pg Normal 27.0-32.0 [facility] Comment on above: Performed By: #### L 501.1400, L7000.5800, L505.7010, L3100.5475, L4600.0100, L500.4050, L501.6710, L502.0250, L500.4100, L101.9900 #### [facility] Laboratory [address] [place], [address] MCHC (RBC) [Mass/Vol] 33.3 g/dL Normal 32-36 [facility] Comment on above: Performed By: #### L 501.1400, L7000.5800, L505.7010, L3100.5475, L4600.0100, L500.4050, L501.6710, L502.0250, L500.4100, L101.9900 #### [facility] Laboratory [address] [place], [address] MCV (RBC) [Entitic vol] 91.9 fL Normal 81-99 [facility] Comment on above: Performed By: #### L 501.1400, L7000.5800, L505.7010, L3100.5475, L4600.0100, L500.4050, L501.6710, L502.0250, L500.4100, L101.9900 #### [facility] Laboratory [address] [place], [address] Monocytes/100 WBC (Bld) 5.1 % Normal 0-10 [facility] Comment on above: Performed By: #### L 501.1400, L7000.5800, L505.7010, L3100.5475, L4600.0100, L500.4050, L501.6710, L502.0250, L500.4100, L101.9900 #### [facility] Laboratory [address] [place], [address] Neutrophils/100 WBC (Bld) 69.8 % Normal 47-70 [facility] Comment on above: Performed By: #### L 501.1400, L7000.5800, L505.7010, L3100.5475, L4600.0100, L500.4050, L501.6710, L502.0250, L500.4100, L101.9900 #### [facility] Laboratory [address] [place], [address] Nucleated RBC (Bld) [#/Vol] 0 10*3/uL Normal 0-5 [facility] Comment on above: Performed By: #### L 501.1400, L7000.5800, L505.7010, L3100.5475, L4600.0100, L500.4050, L501.6710, L502.0250, L500.4100, L101.9900 #### [facility] Laboratory [address] [place], [address] Platelet mean volume (Bld) [Entitic vol] 10.5 fL Normal 6.2-12.0 [facility] Comment on above: Performed By: #### L 501.1400, L7000.5800, L505.7010, L3100.5475, L4600.0100, L500.4050, L501.6710, L502.0250, L500.4100, L101.9900 #### [facility] Laboratory [address], [address] (362) Platelets (Bld) [#/Vol] 190 10*3/uL Normal 150-450 [facility] Comment on above: Performed By: #### L 501.1400, L7000.5800, L505.7010, L3100.5475, L4600.0100, L500.4050, L501.6710, L502.0250, L500.4100, L101.9900 #### [facility] Laboratory [address] [place], [address] (007) RBC (Bld) [#/Vol] 3.95 10*6/uL Low 4.2-5.4 [facility] Comment on above: Performed By: #### L 501.1400, L7000.5800, L505.7010, L3100.5475, L4600.0100, L500.4050, L501.6710, L502.0250, L500.4100, L101.9900 #### [facility] Laboratory [address], [address] ( RDW SD 39.6 fl Normal 35.1-43.9 [facility] Comment on above: Performed By: #### L 501.1400, L7000.5800, L505.7010, L3100.5475, L4600.0100, L500.4050, L501.6710, L502.0250, L500.4100, L101.9900 #### [facility] Laboratory [address] [place], [address] WBC (Bld) [#/Vol] 6.1 10*3/uL Normal 4.4-11.0 [facility] Comment on above: Performed By: #### L 501.1400, L7000.5800, L505.7010, L3100.5475, L4600.0100, L500.4050, L501.6710, L502.0250, L500.4100, L101.9900 #### [facility] Laboratory [address] [place], [place], [phone] Comprehensive Metabolic Prof [facility] 06-10-2024 Albumin [Mass/Vol] 3.7 g/dL Normal 3.2-5.0 [facility] Comment on above: Performed By: #### L 501.1400, L7000.5800, L505.7010, L3100.5475, L4600.0100, L500.4050, L501.6710, L502.0250, L500.4100, L101.9900 #### [facility] Laboratory [address] [place], [place], [id number] Albumin/Globulin [Mass ratio] 1.2 {ratio} Normal 0.9-2.4 [facility] Comment on above: Performed By: #### L 501.1400, L7000.5800, L505.7010, L3100.5475, L4600.0100, L500.4050, L501.6710, L502.0250, L500.4100, L101.9900 #### [facility] Laboratory [address] [place], [address] ALK P 61 U/L Normal 45-117 [facility] Comment on above: Performed By: #### L 501.1400, L7000.5800, L505.7010, L3100.5475, L4600.0100, L500.4050, L501.6710, L502.0250, L500.4100, L101.9900 #### [facility] Laboratory [address] [place], [address] ALT [Catalytic activity/Vol] 23 U/L Normal 13-56 [facility] Comment on above: Performed By: #### L 501.1400, L7000.5800, L505.7010, L3100.5475, L4600.0100, L500.4050, L501.6710, L502.0250, L500.4100, L101.9900 #### [facility] Laboratory [address] [place], [place], [id number] AST [Catalytic activity/Vol] 14 U/L Low 15-37 [facility] Comment on above: Performed By: #### L 501.1400, L7000.5800, L505.7010, L3100.5475, L4600.0100, L500.4050, L501.6710, L502.0250, L500.4100, L101.9900 #### [facility] Laboratory [address] [place], [place], [phone] Bilirubin [Mass/Vol] 0.30 mg/dL Normal 0.20-1.00 [facility] Comment on above: Result Comment: For patients on eltrombopag therapy, use of Dimension Wilmer TBIL is not recommended. Performed By: #### L 501.1400, L7000.5800, L505.7010, L3100.5475, L4600.0100, L500.4050, L501.6710, L502.0250, L500.4100, L101.9900 #### [facility] Laboratory [address] [place], [address] BUN/CRE 14.7 RATIO Normal 10-20 [facility] Comment on above: Performed By: #### L 501.1400, L7000.5800, L505.7010, L3100.5475, L4600.0100, L500.4050, L501.6710, L502.0250, L500.4100, L101.9900 #### [facility] Laboratory [address] [place], [address] CA,Total 9.6 mg/dL Normal 8.5-10.1 [facility] Comment on above: Performed By: #### L 501.1400, L7000.5800, L505.7010, L3100.5475, L4600.0100, L500.4050, L501.6710, L502.0250, L500.4100, L101.9900 #### [facility] Laboratory [address] [place], [place], [phone] (992) Chloride [Moles/Vol] 107 mmol/L Normal 98-107 [facility] Comment on above: Performed By: #### L 501.1400, L7000.5800, L505.7010, L3100.5475, L4600.0100, L500.4050, L501.6710, L502.0250, L500.4100, L101.9900 #### [facility] Laboratory [address] [place], [place], [phone] (247) CO2 [Moles/Vol] 23.0 mmol/L Normal 21.0-32.0 [facility] Comment on above: Performed By: #### L 501.1400, L7000.5800, L505.7010, L3100.5475, L4600.0100, L500.4050, L501.6710, L502.0250, L500.4100, L101.9900 #### [facility] Laboratory [address] [place], [address] Creatinine [Mass/Vol] 1.02 mg/dL Normal 0.55-1.02 [facility] Comment on above: Result Comment: The validity of the calculated GFR GFRAA in patients over 70 years has not been determined. Clinical correlation is essential. Performed By: #### L 501.1400, L7000.5800, L505.7010, L3100.5475, L4600.0100, L500.4050, L501.6710, L502.0250, L500.4100, L101.9900 #### [facility] Laboratory [address] [place], [place], [id number] EST GFR - AA 70 mL/min Normal >60 [facility] Comment on above: Result Comment: Afri can [place] GFR Calc Performed By: #### L 501.1400, L7000.5800, L505.7010, L3100.5475, L4600.0100, L500.4050, L501.6710, L502.0250, L500.4100, L101.9900 #### [facility] Laboratory [address] [place], [address] GAP 7 Normal 5-15 [facility] Comment on above: Performed By: #### L 501.1400, L7000.5800, L505.7010, L3100.5475, L4600.0100, L500.4050, L501.6710, L502.0250, L500.4100, L101.9900 #### [facility] Laboratory [address] [place], [address] GFR/1.73 sq M.predicted among non-blacks MDRD (S/P/Bld) [Vol rate/Area] 58 mL/min/{1.73_m2} Low >60 [facility] Comment on above: Result Comment: Non- GFR Calc Performed By: #### L 501.1400, L7000.5800, L505.7010, L3100.5475, L4600.0100, L500.4050, L501.6710, L502.0250, L500.4100, L101.9900 #### [facility] Laboratory [address] [place], [address] Globulin (S) [Mass/Vol] 3.2 g/dL Normal 2.2-4.2 [facility] Comment on above: Performed By: #### L 501.1400, L7000.5800, L505.7010, L3100.5475, L4600.0100, L500.4050, L501.6710, L502.0250, L500.4100, L101.9900 #### [facility] [address] [place], [address] Glucose [Mass/Vol] 188 mg/dL High 74-106 [facility] Comment on above: Result Comment: Fast ing Glucose result greater than or equal to 126 mg/dL suggests DIABETES MELLITUS per A.D.A. criteria. Performed By: #### L 501.1400, L7000.5800, L505.7010, L3100.5475, L4600.0100, L500.4050, L501.6710, L502.0250, L500.4100, L101.9900 #### [facility] [address] [place], [place], [phone] Potassium [Moles/Vol] 4.0 mmol/L Normal 3.5-5.1 [facility] Comment on above: Performed By: #### L 501.1400, L7000.5800, L505.7010, L3100.5475, L4600.0100, L500.4050, L501.6710, L502.0250, L500.4100, L101.9900 #### [facility] Laboratory [address], [address] Sodium [Moles/Vol] 138 mmol/L Normal 136-145 [facility] Comment on above: Performed By: #### L 501.1400, L7000.5800, L505.7010, L3100.5475, L4600.0100, L500.4050, L501.6710, L502.0250, L500.4100, L101.9900 #### [facility] [address] [place], [address] T PROT 6.9 g/dL Normal 6.4-8.2 [facility] Comment on above: Performed By: #### L 501.1400, L7000.5800, L505.7010, L3100.5475, L4600.0100, L500.4050, L501.6710, L502.0250, L500.4100, L101.9900 #### [facility] [address] [place], [address] Urea nitrogen [Mass/Vol] 15 mg/dL Normal 7-18 [facility] Comment on above: Performed By: #### L 501.1400, L7000.5800, L505.7010, L3100.5475, L4600.0100, L500.4050, L501.6710, L502.0250, L500.4100, L101.9900 #### [facility] [address] [place], [address] Basophil percentageOrdered B y: Cleo Shaffer on 10-13-2023 Bilirubin [Mass/Vol] 0.40 mg/dL 0.20-1.00 [facility] Comment on above: For patients on eltr ombopag therapy, use of Dimension Wilmer TBIL is not recommended. Chloride [Moles/Vol] 109 mmol/L 98-107 [facility] Cholesterol [Mass/Vol] 166 mg/dL <200 [facility] Comment on above: <200 mg/dL Desirable 200-240 mg/dL Borderline >240 mg/dL High Risk Glucose [Mass/Vol] 131 mg/dL 74-106 [facility] Comment on above: Fasting Glucose resu lt greater than or equal to 126 mg/dL suggests DIABETES MELLITUS per A.D.A. criteria. Potassium [Moles/Vol] 4.4 mmol/L 3.5-5.1 [facility] Protein [Mass/Vol] 6.8 g/dL 6.4-8.2 [facility] Sodium [Moles/Vol] 141 mmol/L 136-145 [facility] Triglyceride [Mass/Vol] 100 mg/dL <199 [facility] Comment on above: The drugs N-Acetylcy steine and Metamizole may falsely depress this assay.Serum Triglycerides Reference Interval Normal <150 mg/dL Borderline high 150 - 199 mg/dL High 200 - 499 mg/dL Very High > or = 500 mg/dL Laboratory - Chemistry and C hemistry - challengeOrdered By: Cleo Shaffer on 10-13-2023 Albumin/Globulin [Mass ratio] 1.1 {ratio} 0.9-2.4 [facility] ALP [Catalytic activity/Vol] 74 U/L 45-117 [facility] ALT [Catalytic activity/Vol] 25 U/L 13-56 [facility] Cholesterol in HDL [Mass/Vol] 62 mg/dL >40 [facility] Comment on above: The drugs N-Acetylcy steine and Metamizole may falsely depress this assay. Reference Range HDL <40 mg/dL Low HDL Cholesterol HDL >or= 60 mg/dL High HDL Cholesterol Cholesterol in LDL [Mass/Vol] 84 mg/dL 0-130 [facility] CO2 [Moles/Vol] 26.0 mmol/L 21.0-32.0 [facility] Cobalamin (Vitamin B12) [Mass/Vol] 159 pg/mL 211-911 [facility] Ferritin [Mass/Vol] 12 ng/mL 8-252 [facility] Globulin (S) [Mass/Vol] 3.3 g/dL 2.2-4.2 [facility] Urea nitrogen/Creatinine [Mass ratio] 14.7 mg/mg 10-20 [facility] No Panel InformationOrdered By: Cleo Shaffer on 10-13-2023 Estimated GFR (MDRD) Amer 91 mL/min >60 [facility] Comment on above: GFR Calc Estimated GFR (MDRD) Non-Af Amer 75 mL/min >60 [facility] Comment on above: Non- GFR Calc Urine Microalbumin/Creatinine Ratio 36.3 mg/g CRE <30 [facility] Vitamin D 25-Hydroxy 30.8 ng/mL [facility] Comment on above: Vitamin D 25(OH) Sta tus Range Deficiency <20 ng/mL (50nmol/L) Insufficiency 20 - 30 ng/mL (50 - 75 nmol/L) Sufficiency 30 - 100 ng/mL (75 - 250 nmol/L) Toxicity >100 ng/mL (>250 nmol/L) VLDL Cholesterol 20 mg/dL 5-40 [facility] Serum or plasma calcium jose r urement (mass/volume)Ordered By: Cleo Shaffer on 10-13-2023 Calcium [Mass/Vol] 9.0 mg/dL 8.5-10.1 [facility] Serum or plasma creatinine m easurement (mass/volume)Ordered By: Cleo Shaffer on 10-13-2023 Creatinine [Mass/Vol] 0.82 mg/dL 0.55-1.02 [facility] Comment on above: The validity of the calculated GFR & GFRAA in patients over 70 years has not been determined. Clinical correlation is essential. Serum or plasma urea nitroge n measurement (mass/volume)Ordered By: Cleo Shaffer on 10-13-2023 Urea nitrogen [Mass/Vol] 12 mg/dL 7-18 [facility] Thin prep Papanicolaou smear with manual screeningOrdered By: Cleo Shaffer on 10-13-2023 Thin prep Papanicolaou smear with manual screening 3.5 g/dL 3.2-5.0 [facility] Thin prep Papanicolaou smear with manual screening 21 U/L 15-37 [facility] Thin prep Papanicolaou smear with manual screening 6 5-15 [facility] Thin prep Papanicolaou smear with manual screening 25.6 mg/L NO RANGE EST. [facility] Urine creatinine measurement (mass/volume)Ordered By: Cleo Shaffer on 10-13-2023 Creatinine (U) [Mass/Vol] 70.50 mg/dL NO RANGE EST. [facility] Absolute lymphocyte counton 11-16-2021 Lymphocytes Auto (Unsp spec) [#/Vol] 0.86 10*3/uL 0.83-4.51 [facility] Work Phone: Basophil percentageon 2021 Basophils/100 WBC (Bld) 0.9 % 0-1 [facility] Work Phone: Bilirubin [Mass/Vol] 0.40 mg/dL 0.20-1.00 [facility] Work Phone: Comment on above: For patients on eltr ombopag therapy, use of Dimension Wilmer TBIL is not recommended. Chloride [Moles/Vol] 106 mmol/L 98-107 [facility] Work Phone: Cholesterol [Mass/Vol] 156 mg/dL <200 [facility] Work Phone: Comment on above: <200 mg/dL Desirable 200-240 mg/dL Borderline >240 mg/dL High Risk Eosinophils/100 WBC (Bld) 4.1 % 0-5 [facility] Work Phone: Glucose [Mass/Vol] 130 mg/dL 74-106 [facility] Work Phone: Comment on above: Fasting Glucose resu lt greater than or equal to 126 mg/dL suggests DIABETES MELLITUS per A.D.A. criteria. Neutrophils (Bld) [#/Vol] 3.8 10*3/uL 2.0-7.7 [facility] Work Phone: Neutrophils/100 WBC (Bld) 72.1 % 47-70 [facility] Work Phone: Potassium [Moles/Vol] 4.2 mmol/L 3.5-5.1 [facility] Work Phone: Protein [Mass/Vol] 6.4 g/dL 6.4-8.2 [facility] Work Phone: Sodium [Moles/Vol] 138 mmol/L 136-145 [facility] Work Phone: Triglyceride [Mass/Vol] 133 mg/dL [facility] Work Phone: Comment on above: The drugs N-Acetylcy steine and Metamizole may falsely depress this assay.Serum Triglycerides Reference Interval Normal <150 mg/dL Borderline high 150 - 199 mg/dL High 200 - 499 mg/dL Very High > or = 500 mg/dL WBC (Bld) [#/Vol] 5.3 10*3/uL 4.4-11.0 [facility] Work Phone: Blood erythrocytes count (nu mber/volume)on 11-16-2021 RBC (Bld) [#/Vol] 4.26 10*6/uL 4.2-5.4 [facility] Work Phone: Blood hemoglobin measurement (mass/volume)on 11-16-2021 Hemoglobin (Bld) [Mass/Vol] 12.5 g/dL 12.0-15.0 [facility] Work Phone: Blood lymphocytes/100 leukoc yteson 11-16-2021 Lymphocytes/100 WBC (Bld) 16.1 % 19-41 [facility] Work Phone: Blood monocytes/100 leukocyt eson 11-16-2021 Monocytes/100 WBC (Bld) 6.4 % 0-10 [facility] Work Phone: Blood platelet mean volumeon 11-16-2021 Platelet mean volume (Bld) [Entitic vol] 9.5 fL 6.2-12.0 [facility] Work Phone: Determination of erythrocyte mean corpuscular volume (MCV)on 11-16-2021 MCV (RBC) [Entitic vol] 91.3 fL 81-99 [facility] Work Phone: Hematocrit Auto (Bld) [Volum e fraction]on 11-16-2021 Hematocrit (Bld) [Volume fraction] 38.9 % 37-47 [facility] Work Phone: Laboratory - Chemistry and C hemistry - challengeon 11-16-2021 ALP [Catalytic activity/Vol] 60 U/L 45-117 [facility] Work Phone: ALT [Catalytic activity/Vol] 23 U/L 13-56 [facility] Work Phone: CO2 [Moles/Vol] 27.0 mmol/L 21.0-32.0 [facility] Work Phone: Globulin (S) [Mass/Vol] 2.9 g/dL 2.2-4.2 [facility] Work Phone: Urea nitrogen/Creatinine [Mass ratio] 15.4 mg/mg 10-20 [facility] Work Phone: Laboratory - Hematology and Cell countson 11-16-2021 Erythrocyte distribution width (RBC) [Entitic vol] 41.8 fL 35.1-43.9 [facility] Work Phone: Erythrocyte distribution width (RBC) [Ratio] 12.5 % 11.6-14.6 [facility] Work Phone: Immature granulocytes/100 WBC (Bld) 0.400 % 0.0-0.9 [facility] Work Phone: Comment on above: IG% - Immature Granu locytes (promyelocytes, myelocytes and metamyelocytes) > 1% indicates that a LEFT SHIFT is Present. MCH (RBC) [Entitic mass] 29.3 pg 27.0-32.0 [facility] Work Phone: Nucleated RBC/100 WBC (Bld) [Ratio] 0 % 0-5 [facility] Work Phone: MCHC Auto (RBC) [Mass/Vol]on 11-16-2021 MCHC (RBC) [Mass/Vol] 32.1 g/dL 32-36 [facility] Work [facility]: No Panel Informationon 11-16 Estimated GFR (MDRD) Amer 119 mL/min >60 [facility] Work Phone: Comment on above: GFR Calc Estimated GFR (MDRD) Non-Af Amer 98 mL/min >60 [facility] Work Phone: Comment on above: Non- GFR Calc Platelets bldon 11-16-2021 Platelets (Bld) [#/Vol] 207 10*3/uL 150-450 [facility] Work Phone: Serum or plasma albumin jose r urement (mass/volume)on 11-16-2021 Albumin [Mass/Vol] 3.5 g/dL 3.2-5.0 [facility] Work Phone: Serum or plasma albumin/glob ulin mass ratioon 11-16-2021 Albumin/Globulin [Mass ratio] 1.2 {ratio} 0.9-2.4 [facility] Work Phone: Serum or plasma calcium jose r urement (mass/volume)on 11-16-2021 Calcium [Mass/Vol] 8.6 mg/dL 8.5-10.1 [facility] Work Phone: Serum or plasma cholesterol in HDL measurement (mass/volume)on 11-16-2021 Cholesterol in HDL [Mass/Vol] 62 mg/dL [facility] Work Phone: Comment on above: The drugs N-Acetylcy steine and Metamizole may falsely depress this assay. Reference Range HDL <40 mg/dL Low HDL Cholesterol HDL >or= 60 mg/dL High HDL Cholesterol Serum or plasma cholesterol in VLDL measurement (mass/volume)on 11-16-2021 Cholesterol in VLDL [Mass/Vol] 27 mg/dL 5-40 [facility] Work Phone: Serum or plasma creatinine m easurement (mass/volume)on 11-16-2021 Creatinine [Mass/Vol] 0.65 mg/dL 0.55-1.02 [facility] Work Phone: Comment on above: The validity of the calculated GFR & GFRAA in patients over 70 years has not been determined. Clinical correlation is essential. Serum or plasma low density lipoprotein (LDL) cholesterol measurement (mass/volume)on 11-16-2021 Cholesterol in LDL [Mass/Vol] 67 mg/dL 0-130 [facility] Work Phone: Serum or plasma urea nitroge n measurement (mass/volume)on 11-16-2021 Urea nitrogen [Mass/Vol] 10 mg/dL 7-18 [facility] Work Phone: Thin prep Papanicolaou smear with manual screeningon 11-16-2021 Thin prep Papanicolaou smear with manual screening 15 U/L 15-37 [facility] Work Phone: Thin prep Papanicolaou smear with manual screening 5 5-15 [facility] Work Phone: Thin prep Papanicolaou smear with manual screening 34.2 mg/L NO RANGE EST. [facility] Work Phone: Whole blood hemoglobin A1c/t otal hemoglobin ratio (mass fraction)on 11-16-2021 HbA1c (Bld) [Mass fraction] 6.6 % 3.8-5.6 [facility] Work Phone: Comment on above: Normal < 5.7 % Predi abetic 5.7 - 6.4 % Diabetic >or= 6.5 % Please note range changes. Bacteria identified Cx Nom ( Wound) Wound Culture Meth. resistant Staph. aureus [facility] Work Phone: Gram stain for investigation of transfusion reaction Microscopic observation Gram stain Nom (Unsp spec) [facility] Work Phone: Encounters Encounter Date Encounter Type Care Provider Facility Start: 03-02-2025 End: 03-02-[address] Cleo Shaffer MD Work Phone: -Laboratory [facility] Start: 03-02-2025 End: 03-02-[address] Elissa Coronado DO -Laboratory [place] [facility] Start: 03-02-2025 End: 03-02-2025 ambulatory Cleo Shaffer Facility:[facility] Start: 12-14-2024 End: 12-14-[address] Cleo Shaffer MD -Outpatient Breast Imaging Work Phone: Start: 12-14-2024 End: 12-14-2024 ambulatory Cleo Shaffer Facility:[facility] Start: 06-10-2024 End: 06-10-2024 ambulatory Cleo Shaffer Facility:[facility] Start: 10-13-2023 End: 10-13-2023 ambulatory [facility] Work Phone: Start: 10-13-2023 End: 10-13-2023 Patient encounter procedure [facility]-Laboratory, [place] Work Phone: Start: 08-07-2022 End: 08-07-2022 ambulatory DO Leyda Mukherjee Work Phone: [facility] Work Phone: Start: 08-07-2022 End: 08-07-2022 Patient encounter procedure DO Leyda Mukherjee Work Phone: [facility] Start: 06-20-2022 Non-patient / Non-visit DO Keo Jeannger Work Phone: [facility] Start: 06-20-2022 End: 06-20-2022 Patient encounter procedure DO Leyda Mukherjee Work Phone: [facility]-Cardiovascula r Services Start: 04-23-2022 End: 04-23-2022 ambulatory [facility] Work Phone: Start: 04-23-2022 End: 04-23-2022 Patient encounter procedure [facility]-Laboratory, Specimen Start: 11-26-2021 End: 11-26-2021 Discharged Recurring [facility]-Physical Therapy Start: 11-16-2021 End: 11-16-2021 Patient encounter procedure [facility]-Laboratory Procedures Date Procedure Procedure Detail Performing Clinician Start: 03-02-[address] Kalen Shaffer MD Work Phone: Comment on above: Performed at: [address] [id number] Director: Last Magallanes PhD, Phone: [phone] Start: 12-14-2024 Dual energy X-ray absorptiometry Dr. Cleo Shaffer MD Work Phone: Start: 12-14-2024 Screening mammography Traci Shaffer MD Work Phone: Start: 08-07-2022 MRI of upper limb DO Noe Mukherjee Work Phone: Investigation of transfusion reaction Microbial culture, routine Plan of Treatment Date Care Activity Detail Author Start: 03-02-2025 Borrelia burgdorferi blot test [facility] Cyclic citrullinated peptide IgG Ab [Units/volume] in Serum or Plasma [facility] Laboratory data interpretation General acute hospital Payers Date Payer Category Payer Medicare [id number] 2024 Self-pay [id number] 2024 Unknown [id number] Private Health Insurance [id number] Unknown [id number] Unknown [id number] Unknown [id number] Social History Date Type Detail Facility Start: 05-14-2021 End: 05-14-2021 Tobacco smoking status MIIS Unknown if ever smoked [facility] Start: 05-14-2021 None [facility] Start: 05-14-2021 Non-smoker [facility] Start: 1960 Sex Assigned At Female [facility] Start: 05-14-2021 Tobacco smoking stat us MIIS Ex-smoker (finding) [facility] Evaluation note Note Date & Type Note Facility Evaluation note No assessment information availa ble [facility] Work Phone: Reason for referral (narrative) Note Date & Type Note Facility Reason for referral (narrative) No reason for referral information available [facility] Work Phone: Chief Complaint and Reason for Visit Chief Complaint BACK AND LENNOX SHOULDE R/PT HAS RX Chief Complaint MURMUR RT BICEPS TEAR Chief Complaint Admit Date OSTEOPOROSIS, SCREENING December 14, 2024 12:21pm Advance Directives No Advanced Directives Records Found Advance Directive Response Recorded Date/ Time Living Will Yes May 14, 2021 11:26am Power of Service Trainer Yes April 11:26am Advance Directive Response Recorded Date/ Time Living Will Yes May 14, 2021 10:26am Power of Service Trainer Yes April 10:26am Summary Purpose Family History No Family History Records Found Additional Source Comments Goals (unrecognized section and content) Goals may be documented in a n alternate sectionGoals may be documented in an alternate sectionGoals may be documented in an alternate sectionGoals may be documented in an alternate sectionGoals may be documented in an alternate section Care Teams (unrecognized sec tion and content) Team Status: Active Member Role Status Dates Dr. Tunde Servin MD Family Provider Active Dr. Cleo Shaffer MD Primary Care Provider Active Team Status: Inactive Member Role Status Dates Dr. Cleo Shaffer MD Primary Care Prov ider, Attending Provider, Referring Provider Active Team Status: Active Member Role/Relationship Status Dates Dr. Cleo Shaffer MD Primary Care Provider Active Team Status: Inactive Member Role/Relationship Status Dates Dr. Cleo Shaffer MD Primary Care Provider Active Start: December 14, 2024 End: December 14, 2024 Dr. Cleo Shaffer MD Attending Provider Active Start: December 14, 2024 End: December 14, 2024 Dr. Cleo Shaffer MD Referring Provider Active Start: December 14, 2024 End: December 14, 2024 Team Status: Inactive Member Role/Relationship Status Dates Dr. Cleo Shaffer MD Primary Care Provider Active Start: March 02, 2025 End: March 02, 2025 Dr. Elissa Coronado DO Attending Provider Active St art: March 02, 2025 End: March 02, 2025 INFORMATION SOURCE (unrecogn ized section and content) DATE CREATED AUTHOR 03/12/2025 [facility] FOR RECORDS PERTAINING TO PATIENTS WHO ARE OR HAVE BEEN ENROLLED IN A CHEMICAL DEPENDENCY/SUBSTANCEABUSE PROGRAM, SOME INFORMATION MAY BE OMITTED. This clinical summary was aggregated from multiple sources. Caution should be exercised in using it in the provision of clinical care. This summary normalizes information from multiple sources, and as a consequence, information in this document may materially change the coding, format and clinical context of patient data. In addition, data may be omitted in some cases. CLINICAL DECISIONS SHOULD BE BASED ON THE PRIMARY CLINICAL RECORDS. [facility] provides no warranty or guarantee of the accuracy or completeness of information in this document.
[2025-05-16 18:08] LABS: Age Gdln ACOG Testing 30-65 (.); HPV APTIMA, High Risk Negative (Negative)
== END | disposition home or self-care (01) ==
LOC: LABSPEC 17:56
PROVIDERS: PCP Family Medicine; Visit Provider Family Medicine
DX: Z12.4 Encounter for screening for malignant neoplasm of cervix (principal)
CPT/HCPCS: 87624; 88175; G0145